=== PATIENT | male | born 1950 | race Caucasian/White ===

== ENCOUNTER 2017-02-09 16:10 | Inpatient (IN) | payer MEDICARE, OTHER, SELFPAY ==
[2017-02-09] MEDS ORDERED: methylPREDNISolone Sod Succ/PF 125 MG/2 ML VIAL ONE (16:33)
[2017-02-09 16:44] LABS: #Basophils 0.2 thou/uL (0.0-0.2); #Eosinphils 0.3 thou/uL (0.0-0.7); #Lymphocytes 1.2 thou/uL (1.20-3.40); #Monocytes 0.9 thou/uL (0.11-0.59); %Basophils 1.6 % (0.0-1.0); %Lymphocytes 11.3 % (21.0-51.0); %Monocytes 8.4 % (0.0-10.0); Hematocrit 47.1 % (42.0-52.0); Mean Platelet Volume 9.7 fL (7.4-10.4); Red Blood Cell (RBC) Count 4.85 mill/uL (4.70-6.10); White Blood Cell (WBC) Count 10.6 thou/uL (4.8-10.8)
[2017-02-09] MEDS ORDERED: Aspirin 325 MG TAB ONE (16:47)
[2017-02-09 17:12] LABS: pH (venous) 7.416 (7.35-7.45)
[2017-02-09 17:14] LABS: Blood Gas POC Comment Instrument #1
[2017-02-09 17:17] LABS: ALT (SGPT) 46 U/L (8-55); AST (SGOT) 64 U/L (5-34); Alkaline Phosphatase 307 U/L (40-150); Anion Gap 16 mmol/L (10-20); BUN (Urea Nitrogen) 9 mg/dL (8.4-25.7); Bilirubin, Total 2.9 mg/dL (0.2-1.2); Calc. Creatinine Clearance 0 mL/min (70-130); Carbon Dioxide 28 mmol/L (23-31); Chloride 97 mmol/L (98-107); Estimated GFR-MDRD Greater than 90; Globulin 3.3 g/dL (2.4-3.5); Protein, Total 6.5 g/dL (5.8-8.1); Troponin I 0.065 ng/mL (< 0.028)
[2017-02-09 17:30] LABS: Prothrombin Time 18.8 SEC (12.0-14.7)
--- NOTE | 2017-02-09 17:48 | RAD ---
AP VIEW OF THE CHEST 02/09/17 INDICATION: History of dyspnea. COMPARISON: Prior exam dated 06/10/07. FINDINGS: There is cardiomegaly with pulmonary vascular congestion and bilateral pleural effusions suspicious f or changes of decompensated CHF. There is air space opacity seen within the right mid lung and right lower lobe which may reflect edema or pneumonia. Chronic osseous changes are stable. Post CABG change s are similar. IMPRESSION: 1. Findings suspicious for decompensated CHF. 2. Air space opacity in the right mid lung and right lower lobe may reflect pneumonia or possibl e air space edema. Continued followup is recommended. POS: TAMAR
[2017-02-09] MEDS ORDERED: Furosemide 40 MG/4 ML VIAL ONE (18:18)
[2017-02-09 18:36] LABS: Bilirubin Moderate (Negative); Blood, Urine Negative (Negative); Glucose, Urine (Dipstick) 100 mg/dL (Negative); Ketone, Urine Negative (Negative); Nitrite Negative (Negative); Protein, Urine (Dipstick) Trace mg/dL (Neg-Trace); Urobilinogen > or = 8.0 mg/dL (0.2-1.0)
[2017-02-09] MEDS ORDERED: Ondansetron ODT 4 MG TAB SL PRN (21:19)
[2017-02-09] MEDS ORDERED: Ondansetron HCl/PF 4 MG/2 ML Vial IVP PRN (21:19)
[2017-02-09] MEDS ORDERED: Acetaminophen 325 MG TAB PO PRN (21:19)
[2017-02-09] MEDS ORDERED: PROVENTIL INHALER 6.7 G (200 INHALATIONS) INH PRN (23:52)
[2017-02-10 00:09] LABS: Troponin I 0.044 ng/mL (< 0.028)
[2017-02-10] MEDS ORDERED: HYDROcodone/Acetaminophen 10/325 mg Tablet PO SCH (00:30)
[2017-02-10] MEDS ORDERED: tiZANidine HCl 4 MG TAB PO SCH (00:30)
[2017-02-10] MEDS ORDERED: Zolpidem Tartrate 5 MG TAB PO SCH (00:30)
[2017-02-10] MEDS ORDERED: hydrALAZINE 10 MG TAB PO SCH (00:30)
[2017-02-10] MEDS ORDERED: PROVENTIL INHALER 6.7 G (200 INHALATIONS) INH PRN (04:48)
[2017-02-10 05:42] LABS: #Lymphocytes 0.5 thou/uL (1.20-3.40); #Monocytes 0.2 thou/uL (0.11-0.59); #Neutrophils 6.1 thou/uL (1.40-6.50); %Eosinophils 0.1 % (0.0-10.0); %Lymphocytes 7.5 % (21.0-51.0); %Monocytes 2.8 % (0.0-10.0); Hematocrit 46.7 % (42.0-52.0); Mean Platelet Volume 9.6 fL (7.4-10.4); Red Blood Cell (RBC) Count 4.62 mill/uL (4.70-6.10); White Blood Cell (WBC) Count 6.9 thou/uL (4.8-10.8)
[2017-02-10 05:49] LABS: ALT (SGPT) 40 U/L (8-55); AST (SGOT) 56 U/L (5-34); Alkaline Phosphatase 304 U/L (40-150); Anion Gap 14 mmol/L (10-20); BUN (Urea Nitrogen) 12 mg/dL (8.4-25.7); Bilirubin, Total 2.5 mg/dL (0.2-1.2); Calc. Creatinine Clearance 184 mL/min (70-130); Carbon Dioxide 28 mmol/L (23-31); Chloride 97 mmol/L (98-107); Estimated GFR-MDRD Greater than 90; Globulin 3.4 g/dL (2.4-3.5); Protein, Total 6.5 g/dL (5.8-8.1)
[2017-02-10] MEDS: Furosemide 20 MG/2 ML VIAL SLOW IVP SCH ×2 (05:55→21:58)
[2017-02-10 06:35] LABS: Magnesium 1.7 mg/dL (1.6-2.6); Phosphorus 2.7 mg/dL (2.3-4.7)
--- NOTE | 2017-02-10 08:52 | PDOC.FM ---
- Subjective Subjective: Pt reports doing well overnight. No acute events. Pt denies any SOB overnight. Denies any chest pain. Denies any other sx at this time. - Objective MAR Reviewed: Yes Vital Signs & Weight: Vital Signs (12 hours) Temp Pulse Resp BP BP BP Pulse Ox 02/10/17 07:08 97.7 F 88 16 135/78 91 L 02/10/17 04:00 97.4 F L 68 20 126/66 94 L 02/10/17 00:37 80 151/82 H 02/10/17 00:30 97.7 F 83 20 158/84 H 99 02/09/17 21:30 97.8 F 80 20 100 02/09/17 21:19 97.8 F 80 20 151/82 H 100 02/09/17 21:15 97.8 F 80 20 151/82 H 100 Weight Weight 120.429 kg I&O: 02/09/17 02/10/17 02/11/17 06:59 06:59 06:59 Intake Total 612 Output Total 750 Balance -138 Result Diagrams: 02/10/17 04:22 02/10/17 04:22 Radiology Reviewed by me: Yes (CXR: Decompensated CHF. Opacity in R. mid lung on RLL may reflect pneumonia) <Ray aCbrera - Last Filed: 02/10/17 08:50> - Objective Vital Signs & Weight: Vital Signs (12 hours) Temp Pulse Pulse Pulse Resp BP BP 02/10/17 11:35 97.4 F L 89 18 02/10/17 09:51 88 02/10/17 09:50 99 146/93 H 02/10/17 09:32 71 99 125/79 02/10/17 07:08 97.7 F 88 16 02/10/17 04:00 97.4 F L 68 20 BP BP Pulse Ox Pulse Ox Pulse Ox 02/10/17 11:35 136/81 92 L 02/10/17 09:51 02/10/17 09:50 02/10/17 09:32 146/93 H 90 L 87 L 02/10/17 07:08 135/78 91 L 02/10/17 04:00 126/66 94 L Weight Admit Weight 265 lb 4.8 oz Weight 265 lb 4.8 oz I&O: 11/10/1902/10/17 02/11/17 06:59 06:59 06:59 Intake Total 612 Output Total 750 Balance -138 Result Diagrams: 02/10/17 04:22 02/10/17 04:22 <Bakari Murillo - Last Filed: 02/10/17 12:56> Phys Exam - Physical Examination HEENT: PERRLA, moist MMs Neck: no nodes, no JVD, supple, full ROM Rales on ausculation. Decreased breath sounds at the bases Cardiovascular: RRR, no significant murmur, no rub Gastrointestinal: soft, non-tender, positive bowel sounds Mildly distended Musculoskeletal: pulses present +2 pitting edmea in lower extremeties bilaterally Neurological: non-focal, moves all 4 limbs Lymphatic: no nodes Psychiatric: normal affect, A&O x 3 Skin: no rash <Ray Cabrera - Last Filed: 02/10/17 08:50> Dx/Plan (1) Heart failure Code(s): I50.9 - HEART FAILURE, UNSPECIFIED Status: Acute Qualifiers: Heart failure type: unspecified heart failure type Heart failure chronicity : acute Qualified Code(s): I50.9 - Heart failure, unspecified Plan: -pt states he had an Echo 3 months ago at outside facility. States everything was normal. Requested records from [facility] -Will get TTE today to assess -On IV lasix -Cardiology consulted-Dr. Crain, will await recommendations -Pt NPO at this time just in case any further testing will be needed, hx of 2 CABGs. -Strict I/Os and daily weights for monitoring -Dietary and Heart Failure team consulted for counseling on disease management (2) Paroxysmal atrial fibrillation Code(s): I48.0 - PAROXYSMAL ATRIAL FIBRILLATION Status: Acute Plan: -hx of a.fib -continue home meds -On tele monitor (3) History of coronary artery bypass surgery Status: Acute Plan: -history of 2 CABGs in the past -Continue home meds -Troponins in indeterminate range, trended down. (4) HTN (hypertension) Code(s): I10 - ESSENTIAL (PRIMARY) HYPERTENSION Status: Acute Plan: -continue home meds -BP stable (5) Non-alcoholic fatty liver disease Status: Chronic Plan: -Goes to the [facility]. Has been worked up in the past -Will await records. Possibly consider RUQ u/s (6) Transaminitis Code(s): R74.0 - NONSPEC ELEV OF LEVELS OF TRANSAMNS & LACTIC ACID DEHYDRGNSE Status: Acute Plan: -Hepatitis panel negative -Could be due to NAFLD -[facility] as patient states has recently been worked up a few months ago (7) HLD (hyperlipidemia) Code(s): E78.5 - HYPERLIPIDEMIA, UNSPECIFIED Status: Acute Plan: -continue home meds (8) Hyperbilirubinemia Code(s): E80.6 - OTHER DISORDERS OF BILIRUBIN METABOLISM Status: Acute Plan: -Bili 2.5 -Likely due to NAFLD -No abdominal pain -Getting outside records <Ray Cabrera - Last Filed: 02/10/17 08:50> Attending Addendum - Attending Addendum I personally evaluated the patient and discussed the management with Dr. Cabrera I agree with the History, Examination, Assessment and Plan documented above with any addition or exceptions noted below. 67 year old with progressive SOB over the last month. He presents with CHF. He has known CAD but no recent [place]. We have asked Cardiology to see. He has an echo pending, but may also need a cath. <Bakari Murillo - Last Filed: 02/10/17 12:56>
[2017-02-10] MEDS ORDERED: Metoprolol Tartrate 100 MG TAB PO SCH (09:00)
[2017-02-10] MEDS: Lisinopril 2.5 MG TAB PO SCH (09:50)
[2017-02-10] MEDS: hydrALAZINE 10 MG TAB PO SCH ×3 (09:51→21:55)
[2017-02-10] MEDS: Enoxaparin Sodium 40 MG/0.4 ML SYRINGE SC SCH (09:51)
--- NOTE | 2017-02-10 10:09 | HP-2 ---
DATE OF ADMISSION: 02/09/2017 CODE STATUS: FULL. PRIMARY CARE PHYSICIAN: NEYMAR. ATTENDING: Olman Henderson MD RESIDENT: Cary Valladares MD HISTORIAN: Self. CHIEF COMPLAINT: Shortness of breath. HISTORY OF PRESENT ILLNESS: This is a 67-year-old male with past medical history of coronary artery disease, atrial fibrillation, COPD, hypertension, hyperlipidemia, nonalcoholic fatty liver disease who presented with shortness of breath. Patient reports that 4 weeks ago, he had upper respiratory infection which the ID got azithromycin, did not work, so he went back and got put him on Levaquin t his last Wednesday. The last week, he started having shortness of breath if he walks more than 50 feet . He went to his physical therapist today and his oxygen saturation was 83% to 84%, so they told hi m to come to the ED. He reports that he has had a nonproductive cough, low grade fever at night to 100.4, as well as chills. He has had worsened swelling in his legs. He has had no paroxysmal noctu rnal dyspnea, but reports some orthopnea and sleeps on 2 pillows at night. He has had some rhinorrh ea and nasal congestion that has led to some vomiting. Denies any chest pain or wheezing. He is no t on oxygen at home. PAST MEDICAL HISTORY: 1. Coronary artery disease. 2. Paroxysmal atrial fibrillation, diagnosed 2-3 months ago. 3. Hyperlipidemia. 4. Hypertension. 5. Chronic obstructive pulmonary disease. 6. Post-traumatic stress disorder. 7. Anxiety. 8. Nonalcoholic fatty liver disease. PAST SURGICAL HISTORY: Appendectomy; CABG x2; hands, shoulders, spinal surgery; tonsillectomy. ALLERGIES: CEPHALOSPORINS. MEDICATIONS: 1. Albuterol 2 puffs b.i.d. 2. Aspirin 81 mg daily. 3. Lasix 40 mg q.a.m. p.r.n. 4. [place] 10/325 mg 2 tabs p.o. at bedtime. 5. Ipratropium bromide 2 sprays in each naris. 6. Metoprolol tartrate 100 mg b.i.d. 7. Omeprazole 20 mg at bedtime. 8. Potassium chloride 20 mg p.r.n. with Lasix. 9. Zoloft 100 mg daily. 10. Simvastatin 80 mg 0.5 tabs p.o. at bedtime. 11. Ambien 10 mg at bedtime. 12. Hydralazine 10 mg t.i.d. 13. Hydroxyzine 10 mg at bedtime. 14. Tizanidine 4 mg at bedtime. FAMILY HISTORY: Dad had coronary artery disease. SOCIAL HISTORY: Past history of tobacco use, a 21-yxfz-wlng history, quit in 1990. Alcohol use occ asionally. Denies drug use. REVIEW OF SYSTEMS: Twelve point review of systems was conducted and was negative except what was me ntioned in the HPI. PHYSICAL EXAMINATION: VITAL SIGNS: Blood pressure 139/71, pulse 88, respiratory rate 23, temperature 97.9, pulse ox 84% o n room air. GENERAL: Alert and oriented x3, in no acute distress, obese, appropriately interactive. EYES: Pupils equal, round, reactive to light. Extraocular muscles are intact. Mild scleral icteru s. ENT: Nasal mucosa and oropharynx within normal limits. NECK: Supple, no lymphadenopathy. CARDIOVASCULAR: Regular rate, irregular rhythm, 3/6 systolic murmur. No gallops. 2+ radial and pe keren pulses. RESPIRATORY: Normal effort. No retractions. Rales and decreased breath sounds at the bases. SKIN: Warm, dry. No cyanosis. Stasis dermatitis on bilateral legs. ABDOMEN: Soft, nontender to palpation. Normoactive bowel sounds. No mass or distention. EXTREMITIES: 2+ pitting edema to the knees. MUSCULOSKELETAL: Structure and tone within normal limits. Full range of motion. NEUROLOGIC: No focal deficits. Sensation within normal limits. PSYCHIATRIC: Appropriate. LABORATORY AND IMAGING DATA: WBC 10.6, hemoglobin 15.2, hematocrit 47.1, platelets 211. Sodium 137 , potassium 3.8, chloride 97, CO2 of 28, BUN 9, creatinine 0.69, GFR greater than 90, glucose 97, ca lcium 9.0, total protein 6.5, albumin 3.2, total bilirubin 2.9, alkaline phosphatase 307, AST 64, AL T 47. PT 18.8, INR 1.5. BNP 388.4, troponin 0.065 and 0.060. Urinalysis had moderate bilirubin, g reater than 8 urobilinogen and 100 glucose. VBG, pH of 7.4, pCO2 of 49.3, HCO3 of 32. Chest x-ray showed cardiomegaly with pulmonary vascular congestion, bilateral pleural effusions, airspace opacit y in right middle lobe and right lower lobe. ASSESSMENT AND PLAN: A 67-year-old male who presents with: 1. Congestive heart failure exacerbation. We will request records from [facility]. We will give Lasix 20 mg IV b.i.d., daily weights, strict I's and O's, fluid restrict, echo in the a.m, we will give oxyge n as needed. 2. Indeterminate troponins. We will trend troponins, monitor on tele. We will give aspirin daily. 3. Transaminitis. Patient has a recent diagnosis of nonalcoholic fatty liver disease with recent a bdominal ultrasound. We will request records from the [facility]. We will check a hepatitis panel. He has no current abdominal pain. We will check a direct bilirubin. 4. Hyperbilirubinemia. We will check a direct bilirubin. Patient has mild scleral icterus. Consi tyler repeat ultrasound. 5. Coronary artery disease. Continue home medications. Monitor on tele. 6. Paroxysmal atrial fibrillation as a recent diagnosis. We will continue home medications. Monit or on tele. 7. Hypertension. Continue home medications. 8. Hyperlipidemia. Continue home medications. 9. Nonalcoholic fatty liver disease, likely cause of transaminitis. We will monitor LFTs in the a. m. 10. Anxiety. Continue home medications. 11. Deep venous thrombosis prophylaxis. Lovenox. DISPOSITION: Admit to tele. Symptomatic medication will be provided. History and physical exam as well as management discussed with Dr. Henderson.
--- NOTE | 2017-02-10 15:35 | CON ---
DATE OF CONSULTATION: 02/10/2017 REASON FOR CONSULTATION: Congestive heart failure, coronary artery disease, bypass surgery on 2 dif ferent occasions. HISTORY: Mr. Mullins is a 67-year-old gentleman who has been having progressive lower extremity swel ling and difficulty breathing over the last several months and finally the difficulty breathing wors ened to the point he had to go to the emergency room. He was found to be in congestive heart failur e. He has received diuretics. He is beginning to feel better. He is not having chest pain or pres sure. The lower extremity edema has been present for at least months, but I suspect it is longer. The patient has a history of bypass surgery in 1990 and then again in in 2002. In 2002 with a repea t surgical therapy. The family recalls at that time being told that he is not a candidate for any f urther operations in terms of his coronary status. The patient had chest pain prior to the bypass surgeries. He also had stenting done in the past, bu t that was done prior to the bypass. The patient otherwise has been as mentioned progressively more short of breath and was told that he had worsening of his COPD and progressive lower extremity edema. As mentioned, he feels somewhat better after the diuretic therapy. MEDICATIONS: 1. At home, he was taking metoprolol 100 mg twice daily. 2. Albuterol. 3. Furosemide 40 mg a day if needed. 4. Simvastatin 40 mg daily. 5. Aspirin. 6. Hydralazine. 7. Potassium if needed. SOCIAL HISTORY: No alcohol or tobacco. The patient did smoke, but quit smoking in the early . ALLERGIES: CEPHALOSPORINS. REVIEW OF SYSTEMS: CONSTITUTIONAL: Positive for weakness, fatigue, and lack of energy and swelling. VISION: No changes. HEARING: No changes. PULMONARY: Positive for shortness of breath and cough. CARDIAC: No chest pain, but positive for shortness of breath and swelling. GASTROINTESTINAL: No nausea, vomiting, diarrhea. SKIN: No rashes. NEUROLOGIC: No unilateral weakness or numbness. PSYCHIATRIC: No unusual depression or anxiety. HEMATOLOGIC: No unusual bruising. GENITOURINARY: No burning with urination. MUSCULOSKELETAL: No unusual joint pains. EXTREMITIES: Positive for edema. He also gets exertional leg pain. PHYSICAL EXAMINATION: GENERAL: It is a 67-year-old gentleman. VITAL SIGNS: Height 5 foot 10 inches tall, 265 pounds, BMI 38. EYES: Sclerae nonicteric. MOUTH: Mucous membranes moist. NECK: Supple, no lymphadenopathy. LUNGS: Clear, no wheezing, rales or rhonchi. CARDIOVASCULAR: Normal S1, normal S2. There is no murmur, rub or gallop. ABDOMEN: Obese, nontender, no hepatosplenomegaly. EXTREMITIES: There is severe edema bilaterally with brownish discoloration of both lower extremitie s from the mid calf down indicating chronic venous insufficiency and venous stasis. PULSES: I do not feel pedal pulses on either side, his feet are cold, his hands are cold. I do fee l popliteal pulses on either side. I do not feel a femoral pulse on the left, I feel like there may be a trace femoral pulse on the right. PERTINENT LABORATORY: His potassium is 3.9, creatinine 0.68, BNP 388, AST 56, ALT 40. He was told that he had fatty liver, glucose 163. Hemoglobin 15. He had a venous blood gas done, pO2 is 22. The echocardiogram reveals ejection fraction 25-30%. The inferior wall is akinetic, moderately larg e right ventricle, left atrium severe dilatation, moderately large left ventricle, calcified aortic valve with no stenosis, moderate to severe tricuspid insufficiency and moderately elevated pulmonary artery pressure. EKG; difficult to tell, the rhythm may be junctional, I do not see P waves. There are frequent PVCs . Another EKG looks like maybe a junctional rhythm as well. Some of the EKGs looked suspicious fo r atrial fibrillation. ASSESSMENT: 1. Congestive heart failure, systolic, acute on chronic. 2. Coronary disease with bypass surgery on 2 different occasions. 3. Obesity, BMI is 38. 4. Appears to have diabetes. 5. Peripheral vascular disease, likely severe. 6. Increased liver function test. 7. Hypercholesterolemia. 8. Volume overloaded. PLAN: 1. Change from metoprolol to carvedilol. 2. I agree with RAYMOND inhibitors. 3. Increase diuretic therapy. 4. Continue to monitor heart rhythm. 5. Tentatively plan for cardiac catheterization once the congestive heart failure is improved, poss ibly Wednesday. I discussed the risks of stroke, heart attack, iodine allergy, loss of blood supply to the leg or kidney, stent thrombosis to the leg or kidney, stent thrombosis, stent restenosis. He u nderstands and wishes to proceed. Prognosis is guarded in this gentleman with multiple medical problems with bypass on 2 occasions wit h congestive heart failure.
[2017-02-10] MEDS: Carvedilol 6.25 MG TAB PO SCH (16:26)
[2017-02-10] MEDS ORDERED: Potassium Chloride 20 MEQ TAB PO SCH ×2 (17:00→18:00)
[2017-02-10] MEDS ORDERED: Furosemide 40 MG/4 ML VIAL SLOW IVP SCH (18:00)
[2017-02-10] MEDS: tiZANidine HCl 4 MG TAB PO SCH (21:52)
[2017-02-10] MEDS: hydrOXYzine 10 MG TAB PO SCH (21:52)
[2017-02-10] MEDS: Aspirin 81 mg Enteric Coated Tablet PO SCH (21:52)
[2017-02-10] MEDS: HYDROcodone/Acetaminophen 10/325 mg Tablet PO SCH (21:53)
[2017-02-10] MEDS: Zolpidem Tartrate 5 MG TAB PO SCH (21:54)
[2017-02-10] MEDS: Simvastatin 40 MG TAB PO SCH (21:55)
[2017-02-10] MEDS: Ipratropium Bromide 0.06% Nasal Inhaler 15ml EA NARE SCH (21:58)
[2017-02-11 05:24] LABS: #Lymphocytes 1.2 thou/uL (1.20-3.40); #Monocytes 0.8 thou/uL (0.11-0.59); #Neutrophils 12.1 thou/uL (1.40-6.50); %Eosinophils 0.1 % (0.0-10.0); %Lymphocytes 8.7 % (21.0-51.0); %Monocytes 5.7 % (0.0-10.0); Hematocrit 45.3 % (42.0-52.0); Mean Platelet Volume 8.8 fL (7.4-10.4); Red Blood Cell (RBC) Count 4.44 mill/uL (4.70-6.10); White Blood Cell (WBC) Count 14.2 thou/uL (4.8-10.8)
[2017-02-11 05:44] LABS: ALT (SGPT) 53 U/L (8-55); AST (SGOT) 99 U/L (5-34); Alkaline Phosphatase 273 U/L (40-150); Anion Gap 11 mmol/L (10-20); BUN (Urea Nitrogen) 18 mg/dL (8.4-25.7); Bilirubin, Total 1.9 mg/dL (0.2-1.2); Calc. Creatinine Clearance 196 mL/min (70-130); Calcium 8.8 mg/dL (7.8-10.44); Carbon Dioxide 31 mmol/L (23-31); Chloride 98 mmol/L (98-107); Cholesterol 89 mg/dl (< 200 Desired); Estimated GFR-MDRD Greater than 90; LDL Cholesterol, Calculated 63 mg/dL; Protein, Total 5.8 g/dL (5.8-8.1)
--- NOTE | 2017-02-11 08:33 | PDOC.FM ---
- Subjective Subjective: Pt doing well this morning. Denies SOB. Denies any chest pain. Denies any acute problems overnight - Objective MAR Reviewed: Yes Vital Signs & Weight: Vital Signs (12 hours) Temp Pulse Resp BP BP Pulse Ox 02/11/17 04:00 97.5 F L 72 20 101/59 L 97 02/10/17 21:55 107 H 112/55 L Weight Admit Weight 120.338 kg Weight 117.934 kg I&O: 02/10/17 02/11/17 02/12/17 06:59 06:59 06:59 Intake Total 612 510 Output Total 750 3225 Balance -138 -2687 Result Diagrams: 02/11/17 04:19 02/11/17 04:19 Radiology Reviewed by me: Yes Radiology: ECHO: EF 25-30%. LV size moderately increased. Inferior wall akinetic. Moderately enlarged R. ventricle. Left atrium severely dilated. Moderate mitral regurgitation. Moderate-severe tricuspid regurgitation. Moderately elevated pulm pressure <Ray Cabrera - Last Filed: 02/11/17 08:34> - Objective Vital Signs & Weight: Vital Signs (12 hours) Temp Pulse Resp BP BP Pulse Ox 02/11/17 10:15 109 H 106/58 L 02/11/17 10:13 106/58 L 02/11/17 10:07 97.8 F 109 H 24 H 106/58 L 93 L 02/11/17 04:00 97.5 F L 72 20 101/59 L 97 Weight Admit Weight 265 lb 4.8 oz Weight 260 lb I&O: 02/10/17 02/11/17 02/12/17 06:59 06:59 06:59 Intake Total 612 510 Output Total 750 3225 Balance -138 -0852 Result Diagrams: 02/11/17 04:19 02/11/17 04:19 <Bakari Murillo - Last Filed: 02/11/17 10:52> Phys Exam - Physical Examination Neck: no nodes, supple JVD up to ear noted rales noted in bases of lungs Cardiovascular: RRR, no significant murmur, no rub Gastrointestinal: soft, non-tender, positive bowel sounds mildly distended +2 pitting edema in LE bilaterally Neurological: non-focal, normal sensation Psychiatric: normal affect, A&O x 3 Skin: no rash <Ray Cabrera - Last Filed: 02/11/17 08:34> Dx/Plan (1) Heart failure Code(s): I50.9 - HEART FAILURE, UNSPECIFIED Status: Acute Qualifiers: Heart failure type: unspecified heart failure type Heart failure chronicity : acute Qualified Code(s): I50.9 - Heart failure, unspecified Plan: -pt states he had an Echo 3 months ago at outside facility. States everything was normal. Requested records from [place] -ECHO: EF 25-30%. Inferior wall akinetic. R and L ventricles dilated -On IV lasix BID -Started on Lisinopril -Cardiology consulted-Dr. Crain, will await recommendations -Plan for cath on Wednesday. Diuresing more to make more stable for cath -Switched metoprolol to carvedilol -Strict I/Os and daily weights for monitoring. Heart Healthy diet -Dietary and Heart Failure team consulted for counseling on disease management (2) Paroxysmal atrial fibrillation Code(s): I48.0 - PAROXYSMAL ATRIAL FIBRILLATION Status: Acute Plan: -hx of a.fib -Went into A. fib yesterday. Rate controlled at this time -continue home meds -On tele monitor (3) History of coronary artery bypass surgery Status: Acute Plan: -history of 2 CABGs in the past -Continue home meds -Troponins in indeterminate range, trended down. (4) HTN (hypertension) Code(s): I10 - ESSENTIAL (PRIMARY) HYPERTENSION Status: Acute Plan: -Started on lisinopril. Metoprolol switched to Carvedilol -BP a little low may consider stopping hydralazine at this time -BP stable (5) Non-alcoholic fatty liver disease Status: Chronic Plan: [facility] -Will await records. -Bili trending down. L (6) Transaminitis Code(s): R74.0 - NONSPEC ELEV OF LEVELS OF TRANSAMNS & LACTIC ACID DEHYDRGNSE Status: Acute Plan: -Hepatitis panel negative -Could be due to NAFLD and congestion from heart failure -Will continue to follow with CMPs at this time -[facility] as patient states has recently been worked up a few months ago (7) HLD (hyperlipidemia) Code(s): E78.5 - HYPERLIPIDEMIA, UNSPECIFIED Status: Acute Plan: -continue home meds (8) Hyperbilirubinemia Code(s): E80.6 - OTHER DISORDERS OF BILIRUBIN METABOLISM Status: Acute Plan: -Bili trending down. -Likely due to NAFLD and congestion from heart failure -No abdominal pain -Getting outside records (9) Leukocytosis Code(s): D72.829 - ELEVATED WHITE BLOOD CELL COUNT, UNSPECIFIED Status: Acute Plan: -Possible Pneumonia noted on CXR. -Pt is nonfebrile at this time -Took two rounds of abx the week prior. -Will continue to follow with CBC and follow for signs of infection <Ray Cabrera - Last Filed: 02/11/17 08:34> Attending Addendum - Attending Addendum I personally evaluated the patient and discussed the management with Dr. Cabrera I agree with the History, Examination, Assessment and Plan documented above with any addition or exceptions noted below. We have added lisinopril and are continuing IV lasix to improve his CHF. He is comfortable at present. He is scheduled for a cath tomorrow. <Bakari Murillo - Last Filed: 02/11/17 10:52>
[2017-02-11] MEDS: Furosemide 40 MG/4 ML VIAL SLOW IVP SCH ×2 (08:35→15:07)
[2017-02-11] MEDS ORDERED: FLU VACC TS2017-18 (>65YR) 0.5 ML SYRINGE IM ONE (09:00)
--- NOTE | 2017-02-11 09:40 | PRG ---
DATE OF SERVICE: 02/11/2017 SUBJECTIVE: Mr. Mullins is sitting up on the side of the bed. He is not having chest pain, but he i s sitting straight up. PHYSICAL EXAMINATION: VITAL SIGNS: Blood pressure is 101/59, pulse 72, regular. LUNGS: Clear. CARDIAC: Normal S1, S2. ABDOMEN: Soft, nontender. EXTREMITIES: There is still significant edema, severe. Pedal pulses, I do not feel femoral pulse on the right or left, I do not feel popliteal or any pulses below. The patient coughs when he lays down. His oxygen saturations are in the 80s on oxygen. ASSESSMENT: 1. Congestive heart failure, systolic, still decompensated. 2. Severe peripheral vascular disease. 3. Bypass x2. 4. Coronary artery disease. 5. Ventricular tachycardia. PLAN: 1. He is on low dose beta-jennifer. 2. Continue diuretic therapy. 3. Will check later, may need to hold off on the cardiac catheterization. Prognosis is guarded.
[2017-02-11] MEDS: Carvedilol 6.25 MG TAB PO SCH ×3 (10:13→20:22)
[2017-02-11] MEDS: Potassium Chloride 20 MEQ TAB PO SCH ×2 (10:14→16:26)
[2017-02-11] MEDS: Enoxaparin Sodium 40 MG/0.4 ML SYRINGE SC SCH (10:14)
[2017-02-11] MEDS: Lisinopril 2.5 MG TAB PO SCH (10:15)
[2017-02-11] MEDS: hydrALAZINE 10 MG TAB PO SCH ×2 (10:15→15:04)
[2017-02-11] MEDS: Ipratropium Bromide 0.06% Nasal Inhaler 15ml EA NARE SCH (10:16)
[2017-02-11] MEDS ORDERED: Digoxin 0.5 MG/2 ML AMP SLOW IVP SCH ×2 (17:00→18:45)
[2017-02-11] MEDS ORDERED: Carvedilol 6.25 MG TAB PO SCH (18:45)
[2017-02-11] MEDS ORDERED: Enoxaparin Sodium 100 MG/ML SYRINGE SC SCH (19:00)
[2017-02-11] MEDS: Zolpidem Tartrate 5 MG TAB PO SCH (20:15)
[2017-02-11] MEDS: HYDROcodone/Acetaminophen 10/325 mg Tablet PO SCH (20:19)
[2017-02-11] MEDS: hydrOXYzine 10 MG TAB PO SCH (20:19)
[2017-02-11] MEDS: Aspirin 81 mg Enteric Coated Tablet PO SCH (20:19)
[2017-02-11] MEDS: Simvastatin 40 MG TAB PO SCH (20:20)
[2017-02-11] MEDS: tiZANidine HCl 4 MG TAB PO SCH (20:20)
[2017-02-12 05:08] LABS: #Eosinphils 0.1 thou/uL (0.0-0.7); #Lymphocytes 1.9 thou/uL (1.20-3.40); #Monocytes 0.8 thou/uL (0.11-0.59); #Neutrophils 6.2 thou/uL (1.40-6.50); %Basophils 0.2 % (0.0-1.0); %Eosinophils 1.3 % (0.0-10.0); %Lymphocytes 21.1 % (21.0-51.0); Hematocrit 47.8 % (42.0-52.0); Mean Platelet Volume 8.8 fL (7.4-10.4); Red Blood Cell (RBC) Count 4.67 mill/uL (4.70-6.10); White Blood Cell (WBC) Count 9.1 thou/uL (4.8-10.8)
[2017-02-12 05:42] LABS: ALT (SGPT) 55 U/L (8-55); AST (SGOT) 84 U/L (5-34); Alkaline Phosphatase 271 U/L (40-150); Anion Gap 14 mmol/L (10-20); BUN (Urea Nitrogen) 17 mg/dL (8.4-25.7); Bilirubin, Total 1.9 mg/dL (0.2-1.2); Calc. Creatinine Clearance 175 mL/min (70-130); Calcium 8.5 mg/dL (7.8-10.44); Carbon Dioxide 30 mmol/L (23-31); Chloride 97 mmol/L (98-107); Estimated GFR-MDRD Greater than 90; Globulin 3.3 g/dL (2.4-3.5); Protein, Total 6.1 g/dL (5.8-8.1)
[2017-02-12] MEDS: Furosemide 40 MG/4 ML VIAL SLOW IVP SCH ×2 (05:43→14:16)
[2017-02-12] MEDS ORDERED: Carvedilol 6.25 MG TAB PO SCH (08:00)
[2017-02-12] MEDS ORDERED: Digoxin 0.5 MG/2 ML AMP SLOW IVP SCH (08:15)
[2017-02-12] MEDS: Lisinopril 2.5 MG TAB PO SCH (08:43)
[2017-02-12] MEDS: Potassium Chloride 20 MEQ TAB PO SCH ×2 (08:43→16:15)
[2017-02-12] MEDS: Enoxaparin Sodium 100 MG/ML SYRINGE SC SCH ×2 (08:44→20:36)
--- NOTE | 2017-02-12 09:05 | PDOC.FM ---
- Subjective Subjective: Pt doing well this morning. Denies any SOB or chest pain. Denies any acute events overnight. Did report having some headaches yesterday. Pt has been peeing a lot and tolerating new medications. No other concerns or complaints at this time - Objective MAR Reviewed: Yes Vital Signs & Weight: Vital Signs (12 hours) Pulse Resp BP BP 02/12/17 08:43 90 160/76 H 02/12/17 08:41 107 H 02/12/17 03:53 90 16 104/58 L Weight Admit Weight 120.338 kg Weight 70.307 kg I&O: 02/11/17 02/12/17 02/13/17 06:59 06:59 06:59 Intake Total 510 720 Output Total 1753 0810 Balance -3154 -6925 Result Diagrams: 02/12/17 04:10 02/12/17 04:10 Radiology Reviewed by me: Yes (No new images to be reviewed) <Ray Cabrera - Last Filed: 02/12/17 09:03> - Objective Vital Signs & Weight: Vital Signs (12 hours) Temp Pulse Resp BP BP BP Pulse Ox 02/12/17 09:55 120 H 02/12/17 08:45 97.8 F 120 H 18 160/76 H 92 L 02/12/17 08:43 90 160/76 H 02/12/17 08:41 107 H 02/12/17 03:53 90 16 104/58 L Weight Admit Weight 265 lb 4.8 oz Weight 250 lb 5 oz I&O: 02/11/17 02/12/17 02/13/17 06:59 06:59 06:59 Intake Total 510 720 Output Total 2033 9150 Balance -7106 -3650 Result Diagrams: 02/12/17 04:10 02/12/17 04:10 <Bakari Murillo - Last Filed: 02/12/17 11:14> Phys Exam - Physical Examination HEENT: PERRLA, moist MMs Neck: no nodes, supple JVD to chin line noted Respiratory: no wheezing, no rales, clear to auscultation bilateral Cardiovascular: RRR, no significant murmur, no rub Gastrointestinal: soft, non-tender, positive bowel sounds Mild distention +1 pitting edema. Swelling improved from yesterday in LE Neurological: non-focal, normal sensation Psychiatric: normal affect, A&O x 3 Deviation from normal: Chronic venostasis noted in bilateral LE <Ray Cabrera - Last Filed: 02/12/17 09:03> Dx/Plan (1) Heart failure Code(s): I50.9 - HEART FAILURE, UNSPECIFIED Status: Acute Qualifiers: Heart failure type: unspecified heart failure type Heart failure chronicity : acute Qualified Code(s): I50.9 - Heart failure, unspecified Plan: -pt states he had an Echo 3 months ago at outside facility. States everything was normal. Requested records from [place] -ECHO: EF 25-30%. Inferior wall akinetic. R and L ventricles dilated -On IV lasix BID -Started on Lisinopril. -Cardiology consulted-Dr. Crain, will continue to follow recommendations -Will await decision for cath. Diuresing more to make more stable for cath -Switched metoprolol to carvedilol -Strict I/Os and daily weights for monitoring. Heart Healthy diet -Dietary and Heart Failure team consulted for counseling on disease management (2) Paroxysmal atrial fibrillation Code(s): I48.0 - PAROXYSMAL ATRIAL FIBRILLATION Status: Acute Plan: -hx of a.fib -continue home meds -Will continue to monitor HR. -On tele monitor -Cardiology consulted- Dr. Crain (3) History of coronary artery bypass surgery Status: Acute Plan: -history of 2 CABGs in the past -Continue home meds -Troponins in indeterminate range, trended down. (4) HTN (hypertension) Code(s): I10 - ESSENTIAL (PRIMARY) HYPERTENSION Status: Acute Plan: -Started on lisinopril. Metoprolol switched to Carvedilol -BP elevated this morning and pt reporting headaches. Hydralazine held yesterday. May restart today or increase other BP medications -BP stable (5) Non-alcoholic fatty liver disease Status: Chronic Plan: [facility] [place] -Will await records. -Bili stable (6) Transaminitis Code(s): R74.0 - NONSPEC ELEV OF LEVELS OF TRANSAMNS & LACTIC ACID DEHYDRGNSE Status: Acute Plan: -Hepatitis panel negative -Could be due to NAFLD and congestion from heart failure -Will continue to follow with CMPs at this time -Will get records from [place] and primary care as patient states has recently been worked up a few months ago (7) HLD (hyperlipidemia) Code(s): E78.5 - HYPERLIPIDEMIA, UNSPECIFIED Status: Acute Plan: -continue home meds (8) Hyperbilirubinemia Code(s): E80.6 - OTHER DISORDERS OF BILIRUBIN METABOLISM Status: Acute Plan: -Bili stable -Likely due to NAFLD and congestion from heart failure -No abdominal pain -Awaiting outside records (9) Leukocytosis Code(s): D72.829 - ELEVATED WHITE BLOOD CELL COUNT, UNSPECIFIED Status: Acute Plan: -WBC trended down today. -Possible Pneumonia noted on CXR. -Pt is nonfebrile at this time -Took two rounds of abx the week prior. -Will continue to follow with CBC and follow for signs of infection <Ray Cabrera - Last Filed: 02/12/17 09:03> Attending Addendum - Attending Addendum I personally evaluated the patient and discussed the management with Dr. Cabrera I agree with the History, Examination, Assessment and Plan documented above with any addition or exceptions noted below. He is complaining of FORD this morning. This may be secondary to starting cardedilol and stopping metoprolol. He was on 200 mg daily of metoprolol, so we can increase the dose. His rate is 110-120. We have added lisinopril as well. Dr. Crain is following with us and is planning a cath on Wednesday. He does need more diuresis for CHF, and we will continue with IV Lasix. <Bakari Murillo - Last Filed: 02/12/17 11:14>
[2017-02-12] MEDS ORDERED: Acetaminophen 325 MG TAB PO SCH (09:15)
[2017-02-12] MEDS ORDERED: Lisinopril 2.5 MG TAB PO SCH (09:15)
[2017-02-12] MEDS ORDERED: Ondansetron HCl/PF 4 MG/2 ML Vial IVP PRN (10:03)
--- NOTE | 2017-02-12 10:21 | PRG ---
DATE OF SERVICE: 02/12/2017 SUBJECTIVE: Mr. Mullins is doing somewhat better today. He has no chest pain, says he is not short of breath. He is on 2 liters a minute with oxygen satura tions only 88%. OBJECTIVE: VITAL SIGNS: Blood pressure 104/58, pulse recorded is 90, but it is actually 110, atrial fibrillati on. LUNGS: Clear. CARDIAC: Irregular, irregular. ABDOMEN: Soft, nontender. EXTREMITIES: There is still moderate edema. The oxygen saturation is still low as mentioned. Creatinine is 0.7. Liver function tests are elevated, AST is 84. The patient does have a palpable left femoral pulse today. His blood pressure is a little higher. Therefore, it is probably we can feel that still has likely iliac disease. ASSESSMENT: 1. Congestive heart failure, systolic, still in heart failure. 2. Peripheral vascular disease. 3. Nonsustained ventricular tachycardia. 4. Chronic atrial fibrillation. 5. Heart failure has been refractory. 6. Peripheral vascular disease as mentioned. PLAN: 1. Additional digoxin, heart rate is still too fast. 2. Headache probably muscle tension, this is different from his migraines. 3. Continue intravenous diuretics. 4. May do cardiac catheterization on Wednesday if he is stable. The patient is still hypoxemic.
[2017-02-12] MEDS: Ipratropium Bromide 0.06% Nasal Inhaler 15ml EA NARE SCH (10:32)
[2017-02-12] MEDS: HYDROcodone/Acetaminophen 5/325 mg Tablet PO PRN ×2 (11:01→14:15)
[2017-02-12] MEDS: Carvedilol 25 MG TAB PO SCH (16:15)
[2017-02-12] MEDS: HYDROcodone/Acetaminophen 10/325 mg Tablet PO SCH (20:33)
[2017-02-12] MEDS: Zolpidem Tartrate 5 MG TAB PO SCH (20:35)
[2017-02-12] MEDS: Aspirin 81 mg Enteric Coated Tablet PO SCH (20:35)
[2017-02-12] MEDS: tiZANidine HCl 4 MG TAB PO SCH (20:36)
[2017-02-12] MEDS: hydrOXYzine 10 MG TAB PO SCH (20:36)
[2017-02-12] MEDS: Simvastatin 40 MG TAB PO SCH (20:36)
[2017-02-13 05:39] LABS: #Basophils 0.1 thou/uL (0.0-0.2); #Eosinphils 0.3 thou/uL (0.0-0.7); #Monocytes 0.7 thou/uL (0.11-0.59); #Neutrophils 4.7 thou/uL (1.40-6.50); %Basophils 0.8 % (0.0-1.0); %Lymphocytes 25.4 % (21.0-51.0); %Monocytes 9.2 % (0.0-10.0); Hematocrit 50.7 % (42.0-52.0); Mean Platelet Volume 9.6 fL (7.4-10.4); Red Blood Cell (RBC) Count 4.94 mill/uL (4.70-6.10); White Blood Cell (WBC) Count 7.7 thou/uL (4.8-10.8)
[2017-02-13 06:02] LABS: ALT (SGPT) 48 U/L (8-55); AST (SGOT) 53 U/L (5-34); Alkaline Phosphatase 275 U/L (40-150); Anion Gap 11 mmol/L (10-20); BUN (Urea Nitrogen) 15 mg/dL (8.4-25.7); Bilirubin, Total 2.1 mg/dL (0.2-1.2); Calc. Creatinine Clearance 174 mL/min (70-130); Calcium 8.9 mg/dL (7.8-10.44); Carbon Dioxide 33 mmol/L (23-31); Chloride 97 mmol/L (98-107); Estimated GFR-MDRD Greater than 90; Globulin 3.2 g/dL (2.4-3.5); Protein, Total 6.2 g/dL (5.8-8.1)
--- NOTE | 2017-02-13 07:15 | PDOC.FM ---
- Subjective Subjective: Pt doing well overnight. Denies any headache. Pain being well controlled. Denies any SOB, chest pain. Denies any fevers or chills. Denies any nausea, vomitting, diarrhea. No acute events overnight. - Objective MAR Reviewed: Yes Vital Signs & Weight: Vital Signs (12 hours) Temp Pulse Resp BP BP Pulse Ox 02/13/17 04:00 97.4 F L 66 18 127/60 93 L 02/13/17 00:00 98.7 F 67 18 97/53 L 93 L 02/12/17 19:59 97.5 F L 70 18 98 02/12/17 19:48 97.5 F L 70 18 110/53 L 98 Weight Admit Weight 120.338 kg Weight 148.3 g I&O: 02/12/17 02/13/17 02/14/17 06:59 06:59 06:59 Intake Total 720 1320 Output Total 3950 1500 Balance -3230 -180 Result Diagrams: 02/13/17 05:11 02/13/17 05:11 Radiology Reviewed by me: Yes (CXR pending to be taken today) <Ray Cabrera - Last Filed: 02/13/17 07:14> - Objective Vital Signs & Weight: Vital Signs (12 hours) Temp Pulse Resp BP BP Pulse Ox 02/13/17 08:41 75 02/13/17 08:40 77 02/13/17 08:00 98.1 F 75 17 139/84 94 L 02/13/17 04:00 97.4 F L 66 18 127/60 93 L 02/13/17 00:00 98.7 F 67 18 97/53 L 93 L Weight Admit Weight 265 lb 4.8 oz Weight 5.231 oz I&O: 02/12/17 02/13/17 02/14/17 06:59 06:59 06:59 Intake Total 720 1320 Output Total 3950 1500 Balance -3230 -180 Result Diagrams: 02/13/17 05:11 02/13/17 05:11 <Bakari Murillo - Last Filed: 02/13/17 11:01> Phys Exam - Physical Examination HEENT: moist MMs Neck: no nodes JVD to Jaw line Respiratory: no wheezing, no rales Decreased breath sounds at the bases Cardiovascular: no significant murmur Irregularly Irregular, Gastrointestinal: soft, non-tender, no distention, positive bowel sounds Musculoskeletal: pulses present Edema very much improved. +1 pitting edema in LE bilaterally Neurological: non-focal, normal sensation Psychiatric: normal affect, A&O x 3 Skin: no rash <Ray Cabrera - Last Filed: 02/13/17 07:14> Dx/Plan (1) Heart failure Code(s): I50.9 - HEART FAILURE, UNSPECIFIED Status: Acute Qualifiers: Heart failure type: unspecified heart failure type Heart failure chronicity : acute Qualified Code(s): I50.9 - Heart failure, unspecified Plan: -pt states he had an Echo 3 months ago at outside facility. States everything was normal. Requested records from [place] -ECHO: EF 25-30%. Inferior wall akinetic. R and L ventricles dilated -On IV lasix BID -Started on Lisinopril. -Cardiology consulted-Dr. Crain, will continue to follow recommendations -Will await decision for cath. Diuresing more to make more stable for cath -Switched metoprolol to carvedilol, increased dose of carvedilol as heart rate was elevated yesterday -Strict I/Os and daily weights for monitoring. Heart Healthy diet -Dietary and Heart Failure team consulted for counseling on disease management -CXR pending today. (2) Paroxysmal atrial fibrillation Code(s): I48.0 - PAROXYSMAL ATRIAL FIBRILLATION Status: Acute Plan: -hx of a.fib -Pt currently in A.fib -Rate controlled at this time. -On tele monitor -Cardiology consulted- Dr. Crain (3) Nonsustained ventricular tachycardia Code(s): I47.2 - VENTRICULAR TACHYCARDIA Status: Acute Plan: Nonsustained. Had about 10 beats of ventricular tachycardia yesterday. -On tele monitor. Will continue to observe. -Currently in A. fib rate controlled. -Dr. Crain consulted and following (4) History of coronary artery bypass surgery Status: Acute Plan: -history of 2 CABGs in the past -Continue home meds -Troponins in indeterminate range, trended down. (5) HTN (hypertension) Code(s): I10 - ESSENTIAL (PRIMARY) HYPERTENSION Status: Acute Plan: -Started on lisinopril. Metoprolol switched to Carvedilol. Carvedilol dose increased from 12.5 to 25 bid -BP stable. (6) Non-alcoholic fatty liver disease Status: Chronic Plan: [facility] -Will await records. -Bili stable (7) Transaminitis Code(s): R74.0 - NONSPEC ELEV OF LEVELS OF TRANSAMNS & LACTIC ACID DEHYDRGNSE Status: Acute Plan: -Hepatitis panel negative -Could be due to NAFLD and congestion from heart failure -Will continue to follow with CMPs at this time -Will get records from [place] and primary care as patient states has recently been worked up a few months ago (8) HLD (hyperlipidemia) Code(s): E78.5 - HYPERLIPIDEMIA, UNSPECIFIED Status: Acute Plan: -continue home meds (9) Hyperbilirubinemia Code(s): E80.6 - OTHER DISORDERS OF BILIRUBIN METABOLISM Status: Acute Plan: -Bili stable -Likely due to NAFLD and congestion from heart failure -No abdominal pain -Awaiting outside records (10) Leukocytosis Code(s): D72.829 - ELEVATED WHITE BLOOD CELL COUNT, UNSPECIFIED Status: Resolved Plan: -WBC trended down today. -Possible Pneumonia noted on CXR. -Pt is nonfebrile at this time -Took two rounds of abx the week prior. -Will continue to follow with CBC and follow for signs of infection <Ray Cabrera - Last Filed: 02/13/17 07:14> Attending Addendum - Attending Addendum I personally evaluated the patient and discussed the management with Dr. Cabrera I agree with the History, Examination, Assessment and Plan documented above with any addition or exceptions noted below. He continues to improve. CHF is getting better on carvedilol and lisinopril. One concern is an infiltrate on his CXR. He was treated for pneumonia at the [place] with a Zpack and 5 days of Levaquin. His WBC are improving as is his cough. No fever. Pulmonary is seeing him, but I think he does not have active pneumonia at this time. <Bakari Murillo - Last Filed: 02/13/17 11:01>
[2017-02-13] MEDS: Furosemide 40 MG/4 ML VIAL SLOW IVP SCH ×2 (07:21→14:08)
[2017-02-13] MEDS ORDERED: Communication Order-Pharmacy FS SCH (07:30)
--- NOTE | 2017-02-13 08:01 | PRG ---
DATE OF SERVICE: 02/13/2017 SUBJECTIVE: Mr. Mullins is feeling better today. He said he is breathing better. It looks like he had a pretty good diuresis yesterday during the day, 4 liters out, but not much flu id last night. PHYSICAL EXAMINATION: LUNGS: Clear. CARDIAC: Irregular, irregular. ABDOMEN: Soft, nontender. EXTREMITIES: No edema. ASSESSMENT: 1. Coronary artery disease, status post bypass on 2 different occasions. . 2. Congestive heart failure, systolic, acute on chronic, slowly improving. 3. Chronic obstructive pulmonary disease. 4. Peripheral vascular disease, severe. PLAN: 1. Chest x-ray is ordered. 2. Tentatively planned cardiac catheterization Wednesday. Discussed risk of stroke, heart attack, iodi ne allergy, interfering with of blood supply to the leg or kidney, stent thrombosis, stent restenosi s in the event stenting is indicated. He understands and wishes to proceed. He understands it may not be possible to do the catheterization from the legs, but will give it an attempt. If we are uns uccessful I think consideration for working on the peripheral arteries at a later time can be given. The patient understands the guarded prognosis and wishes to proceed on Wednesday.
--- NOTE | 2017-02-13 08:13 | RAD ---
PORTABLE UPRIGHT CHEST 1 VIEW: HISTORY: A 67-year-old male with congestive heart failure. COMPARISON: 02/09/17. FINDINGS: Extensive consolidating alveolar parenchymal change throughout the right lung. Increased markings i n the left chest with some blunting of the left costophrenic angle and some linear stranding in the left base. IMPRESSION: Worsening confluent opacity throughout the entire right lung, evidence for right lung pneumonia. Bi lateral vascular congestion with some linear changes in the left base and costophrenic angle probabl y related to coexistent congestive heart failure. The right chest has become more opaque from the p rior study of 02/09. Continue short-term followup. POS: [facility]
[2017-02-13] MEDS: Lisinopril 5 MG TAB PO SCH (08:40)
[2017-02-13] MEDS: Potassium Chloride 20 MEQ TAB PO SCH ×2 (08:40→17:41)
[2017-02-13] MEDS: Carvedilol 25 MG TAB PO SCH ×2 (08:40→17:42)
[2017-02-13] MEDS: Enoxaparin Sodium 100 MG/ML SYRINGE SC SCH ×2 (08:41→20:53)
[2017-02-13] MEDS: Digoxin 0.125 MG TAB PO SCH (08:41)
[2017-02-13] MEDS: HYDROcodone/Acetaminophen 5/325 mg Tablet PO PRN ×2 (08:45→17:42)
[2017-02-13] MEDS: Ipratropium Bromide 0.06% Nasal Inhaler 15ml EA NARE SCH (08:50)
[2017-02-13] MEDS: tiZANidine HCl 4 MG TAB PO SCH (20:48)
[2017-02-13] MEDS: Simvastatin 40 MG TAB PO SCH (20:48)
[2017-02-13] MEDS: Aspirin 81 mg Enteric Coated Tablet PO SCH (20:48)
[2017-02-13] MEDS: hydrOXYzine 10 MG TAB PO SCH (20:48)
[2017-02-13] MEDS: HYDROcodone/Acetaminophen 10/325 mg Tablet PO SCH (20:49)
[2017-02-13] MEDS: Zolpidem Tartrate 5 MG TAB PO SCH (20:49)
[2017-02-14 06:00] LABS: #Eosinphils 0.4 thou/uL (0.0-0.7); #Monocytes 0.5 thou/uL (0.11-0.59); #Neutrophils 4.2 thou/uL (1.40-6.50); %Basophils 0.5 % (0.0-1.0); %Eosinophils 5.9 % (0.0-10.0); %Lymphocytes 27.2 % (21.0-51.0); %Monocytes 7.5 % (0.0-10.0); Mean Platelet Volume 8.5 fL (7.4-10.4); Red Blood Cell (RBC) Count 4.67 mill/uL (4.70-6.10); White Blood Cell (WBC) Count 7.2 thou/uL (4.8-10.8)
[2017-02-14] MEDS: Furosemide 40 MG/4 ML VIAL SLOW IVP SCH ×2 (06:21→15:00)
[2017-02-14 06:26] LABS: ALT (SGPT) 36 U/L (8-55); AST (SGOT) 30 U/L (5-34); Alkaline Phosphatase 221 U/L (40-150); BUN (Urea Nitrogen) 17 mg/dL (8.4-25.7); Bilirubin, Total 1.9 mg/dL (0.2-1.2); Calc. Creatinine Clearance 0 mL/min (70-130); Calcium 8.9 mg/dL (7.8-10.44); Estimated GFR-MDRD 84; Protein, Total 5.9 g/dL (5.8-8.1)
[2017-02-14 06:36] LABS: Anion Gap 14 mmol/L (10-20); Carbon Dioxide 34 mmol/L (23-31); Chloride 93 mmol/L (98-107)
--- NOTE | 2017-02-14 07:21 | PDOC.FM ---
- Subjective Subjective: Pt doing well this morning. Denies any acute events overnight. Denies any SOB. Pt says yesterday he was up taking a shower, walking around and never had any problems. Denies any fevers, chills. Denies any chest pain, nausea, vomitting. No other concerns or complaints at this time - Objective MAR Reviewed: Yes Vital Signs & Weight: Vital Signs (12 hours) Temp Pulse Resp BP Pulse Ox 02/14/17 04:35 97.7 F 62 14 94/60 97 02/14/17 03:09 96 02/13/17 23:58 70 02/13/17 20:47 98.6 F 75 16 101/58 L 96 02/13/17 20:42 98.6 F 75 16 96 Weight Admit Weight 120.338 kg Weight 247.5 g I&O: 02/13/17 02/14/17 02/15/17 06:59 06:59 06:59 Intake Total 1320 1220 Output Total 1500 3040 Balance -180 -1820 Result Diagrams: 02/14/17 05:42 02/14/17 05:42 Radiology Reviewed by me: Yes Radiology: 02/13 CXR: Worsening confluent opacity throughout the entire r. lung, evidence for r. lung pneumonia. bilateral vascular congestion w/ some linear changes in the left base and costophrenic angle probably related to coexistent CHF. R. chest more opaque <Ray Cabrera - Last Filed: 02/14/17 07:19> - Objective Vital Signs & Weight: Vital Signs (12 hours) Temp Pulse Pulse Pulse Resp BP BP 02/14/17 09:39 88 02/14/17 09:38 89 02/14/17 09:24 88 94 162/93 H 112/56 L 02/14/17 08:00 98.3 F 89 17 02/14/17 04:35 97.7 F 62 14 02/14/17 03:09 02/13/17 23:58 70 BP Pulse Ox Pulse Ox Pulse Ox 02/14/17 09:39 02/14/17 09:38 02/14/17 09:24 95 90 L 02/14/17 08:00 112/56 L 02/14/17 04:35 94/60 97 02/14/17 03:09 96 02/13/17 23:58 Weight Admit Weight 265 lb 4.8 oz Weight 8.73 oz I&O: 02/13/17 02/14/17 02/15/17 06:59 06:59 06:59 Intake Total 1320 1220 Output Total 1500 3040 Balance -180 -1820 Result Diagrams: 02/14/17 05:42 02/14/17 05:42 <Bakari Murillo - Last Filed: 02/14/17 10:52> Phys Exam - Physical Examination HEENT: moist MMs, oral pharynx no lesions Neck: no nodes, supple JVD to jaw line Respiratory: no wheezing, no rales, no rhonchi Decreased breath sounds more on R. than left Cardiovascular: no significant murmur, no rub Irregularly irregular Gastrointestinal: soft, non-tender, no distention, positive bowel sounds Musculoskeletal: pulses present, edema present +1 pitting edema. Neurological: non-focal, normal sensation, moves all 4 limbs Psychiatric: normal affect, A&O x 3 Skin: no rash <Ray Cabrera - Last Filed: 02/14/17 07:19> Dx/Plan (1) Heart failure Code(s): I50.9 - HEART FAILURE, UNSPECIFIED Status: Acute Qualifiers: Heart failure type: unspecified heart failure type Heart failure chronicity : acute Qualified Code(s): I50.9 - Heart failure, unspecified Plan: -pt states he had an Echo 3 months ago at outside facility. States everything was normal. Requested records from [place] -ECHO: EF 25-30%. Inferior wall akinetic. R and L ventricles dilated -On IV lasix BID -Started on Lisinopril. -Cardiology consulted-Dr. Crain, will continue to follow recommendations -Plan for cath tmrw. Diuresing more to make more stable for cath -Switched metoprolol to carvedilol, increased dose of carvedilol as heart rate was elevated yesterday -Strict I/Os and daily weights for monitoring. Heart Healthy diet -Dietary and Heart Failure team consulted for counseling on disease management -CXR shows worsening opacity from previous study. Bicarb slowly increasing the last few days. Will check an ABG today. Will continue diuresis. -Xray reads pneumonia, pt has been afebrile, no increased white count other than one day. Got two doses of abx before admission. Will continue to monitor for now (2) Paroxysmal atrial fibrillation Code(s): I48.0 - PAROXYSMAL ATRIAL FIBRILLATION Status: Acute Plan: -hx of a.fib -Pt currently in A.fib -Rate controlled at this time. -On tele monitor -Cardiology consulted- Dr. Crain (3) Nonsustained ventricular tachycardia Code(s): I47.2 - VENTRICULAR TACHYCARDIA Status: Acute Plan: Nonsustained. Had about 10 beats of ventricular tachycardia a few days ago. -On tele monitor. Will continue to observe. -Currently in A. fib rate controlled. -Dr. Crain consulted and following (4) History of coronary artery bypass surgery Status: Acute Plan: -history of 2 CABGs in the past -Plan for heart cath tmrw -Continue home meds -Troponins in indeterminate range, trended down. (5) HTN (hypertension) Code(s): I10 - ESSENTIAL (PRIMARY) HYPERTENSION Status: Acute Plan: -Started on lisinopril. Metoprolol switched to Carvedilol. Carvedilol dose increased from 12.5 to 25 bid -BP a little low. Will await recommendations from Dr. Crain. May need to cut back dose on one of his BP meds (6) Non-alcoholic fatty liver disease Status: Chronic Plan: -[facility] -Will await records. -Bili stable (7) Transaminitis Code(s): R74.0 - NONSPEC ELEV OF LEVELS OF TRANSAMNS & LACTIC ACID DEHYDRGNSE Status: Acute Plan: -Hepatitis panel negative -Could be due to NAFLD and congestion from heart failure -Will continue to follow with CMPs at this time -[facility] as patient states has recently been worked up a few months ago (8) HLD (hyperlipidemia) Code(s): E78.5 - HYPERLIPIDEMIA, UNSPECIFIED Status: Acute Plan: -continue home meds (9) Hyperbilirubinemia Code(s): E80.6 - OTHER DISORDERS OF BILIRUBIN METABOLISM Status: Acute Plan: -Bili stable -Likely due to NAFLD and congestion from heart failure -No abdominal pain -Awaiting outside records (10) Leukocytosis Code(s): D72.829 - ELEVATED WHITE BLOOD CELL COUNT, UNSPECIFIED Status: Resolved Plan: -WBC trended down today. -Possible Pneumonia noted on CXR. -Pt is nonfebrile at this time -Took two rounds of abx the week prior. -Will continue to follow with CBC and follow for signs of infection <Ray Cabrera - Last Filed: 02/14/17 07:19> Attending Addendum - Attending Addendum I personally evaluated the patient and discussed the management with Dr. Cabrera. I agree with the History, Examination, Assessment and Plan documented above with any addition or exceptions noted below. He is doing well as far as CHF goes. We think we can stop oxygen. He is scheduled for a cath tomorrow. <Bakari Murillo - Last Filed: 02/14/17 10:52>
[2017-02-14 07:41] LABS: Oxyhemoglobin 87.5 % (94.0-97.0); Sodium 137 mmol/L (135-148)
[2017-02-14 07:43] LABS: Modified Allen's Test POSITIVE; Vent NO
[2017-02-14 07:44] LABS: Mode NC
[2017-02-14] MEDS: Lisinopril 5 MG TAB PO SCH (09:38)
[2017-02-14] MEDS: Ipratropium Bromide 0.06% Nasal Inhaler 15ml EA NARE SCH (09:38)
[2017-02-14] MEDS: Potassium Chloride 20 MEQ TAB PO SCH ×2 (09:38→17:00)
[2017-02-14] MEDS: Carvedilol 25 MG TAB PO SCH ×2 (09:38→17:00)
[2017-02-14] MEDS: Digoxin 0.125 MG TAB PO SCH (09:39)
[2017-02-14] MEDS: Enoxaparin Sodium 100 MG/ML SYRINGE SC SCH (09:39)
[2017-02-14] MEDS: HYDROcodone/Acetaminophen 5/325 mg Tablet PO PRN ×2 (09:52→15:18)
[2017-02-14] MEDS: hydrOXYzine 10 MG TAB PO SCH (21:18)
[2017-02-14] MEDS: tiZANidine HCl 4 MG TAB PO SCH (21:18)
[2017-02-14] MEDS: HYDROcodone/Acetaminophen 10/325 mg Tablet PO SCH (21:18)
[2017-02-14] MEDS: Zolpidem Tartrate 5 MG TAB PO SCH (21:19)
[2017-02-14] MEDS: Aspirin 81 mg Enteric Coated Tablet PO SCH (21:19)
[2017-02-14] MEDS: Simvastatin 40 MG TAB PO SCH (21:19)
[2017-02-15] MEDS ORDERED: Sodium Chloride 0.9% 1,000 ML IV SCH (06:00)
[2017-02-15 06:07] LABS: #Basophils 0.1 thou/uL (0.0-0.2); #Eosinphils 0.5 thou/uL (0.0-0.7); #Lymphocytes 1.9 thou/uL (1.20-3.40); #Monocytes 0.8 thou/uL (0.11-0.59); #Neutrophils 4.6 thou/uL (1.40-6.50); %Basophils 0.8 % (0.0-1.0); %Eosinophils 6.2 % (0.0-10.0); %Lymphocytes 24.6 % (21.0-51.0); %Monocytes 9.8 % (0.0-10.0); Hematocrit 50.2 % (42.0-52.0); Mean Platelet Volume 8.9 fL (7.4-10.4); Red Blood Cell (RBC) Count 4.95 mill/uL (4.70-6.10); White Blood Cell (WBC) Count 7.8 thou/uL (4.8-10.8)
[2017-02-15] MEDS: Potassium Chloride 20 MEQ TAB PO SCH ×2 (06:08→17:18)
[2017-02-15] MEDS: Digoxin 0.125 MG TAB PO SCH (06:08)
[2017-02-15] MEDS: Carvedilol 25 MG TAB PO SCH (06:08)
[2017-02-15 06:31] LABS: ALT (SGPT) 31 U/L (8-55); AST (SGOT) 32 U/L (5-34); Alkaline Phosphatase 234 U/L (40-150); Anion Gap 12 mmol/L (10-20); BUN (Urea Nitrogen) 19 mg/dL (8.4-25.7); Bilirubin, Total 1.8 mg/dL (0.2-1.2); Calc. Creatinine Clearance 132 mL/min (70-130); Carbon Dioxide 36 mmol/L (23-31); Chloride 91 mmol/L (98-107); Estimated GFR-MDRD 89; Globulin 3.2 g/dL (2.4-3.5); Protein, Total 6.2 g/dL (5.8-8.1)
[2017-02-15] MEDS ORDERED: Diazepam 5 MG TAB PO SCH (07:00)
--- NOTE | 2017-02-15 08:37 | PDOC.FM ---
- Subjective Subjective: Pt reports doing well this morning. Denies any acute event overnight. Denies any chest pain or SOB. Pt reports peeing well. Pt says he has gotten up and moved around without any problems. Denies any headaches or any other pain at this time. Plan is for cath today. - Objective MAR Reviewed: Yes Vital Signs & Weight: Vital Signs (12 hours) Temp Pulse Resp BP Pulse Ox 02/15/17 08:00 98.2 F 87 18 90 L 02/15/17 07:58 98.2 F 87 18 109/59 L 90 L 02/15/17 06:08 78 02/15/17 04:55 80 18 100/54 L 02/15/17 04:00 97.9 F 74 18 85/51 L 90 L 02/15/17 03:13 91 L 02/15/17 00:00 97.6 F 70 16 99/53 L 91 L Weight Admit Weight 120.338 kg Weight 108.908 kg I&O: 02/14/17 02/15/17 02/16/17 06:59 06:59 06:59 Intake Total 1220 1460 Output Total 3040 1920 Balance -1820 460 Result Diagrams: 02/15/17 04:34 02/15/17 04:34 Radiology Reviewed by me: Yes (Official read on CXR today pending. Minimally improved from previous) <Ray Cabrera - Last Filed: 02/15/17 08:36> - Objective Vital Signs & Weight: Vital Signs (12 hours) Temp Pulse Resp BP Pulse Ox 02/15/17 08:00 98.2 F 87 18 90 L 02/15/17 07:58 98.2 F 87 18 109/59 L 90 L 02/15/17 06:08 78 02/15/17 04:55 80 18 100/54 L 02/15/17 04:00 97.9 F 74 18 85/51 L 90 L 02/15/17 03:13 91 L Weight Admit Weight 120.338 kg Weight 108.908 kg I&O: 02/14/17 02/15/17 02/16/17 06:59 06:59 06:59 Intake Total 1220 1460 Output Total 3040 1920 Balance -1820 -460 Result Diagrams: 02/15/17 04:34 02/15/17 04:34 <WinterEmmanuel Ellis Cory - Last Filed: 02/15/17 12:28> Phys Exam - Physical Examination HEENT: moist MMs, oral pharynx no lesions Neck: no nodes, supple, full ROM JVD to jaw line Respiratory: no wheezing, no rales Decreased breath sounds in R. lung. Some mild rhonchi present bilaterally Cardiovascular: no significant murmur, no rub Irregularly irregular Gastrointestinal: soft, non-tender, no distention, positive bowel sounds Musculoskeletal: pulses present +1 pitting edema. Stable from yesterday Neurological: non-focal, normal sensation, moves all 4 limbs Psychiatric: normal affect, A&O x 3 Skin: no rash <MargotelliotRay - Last Filed: 02/15/17 08:36> Dx/Plan (1) Heart failure Code(s): I50.9 - HEART FAILURE, UNSPECIFIED Status: Acute Qualifiers: Heart failure type: unspecified heart failure type Heart failure chronicity : acute Qualified Code(s): I50.9 - Heart failure, unspecified Plan: -pt states he had an Echo 3 months ago at outside facility. States everything was normal. Requested records from [place] -ECHO: EF 25-30%. Inferior wall akinetic. R and L ventricles dilated -On IV lasix BID -Started on Lisinopril. -Cardiology consulted-Dr. Crain, will continue to follow recommendations -Plan is for heart Cath today. Will await results and further plan. -Switched metoprolol to carvedilol, increased dose of carvedilol as heart rate was elevated a few days ago. BP low again. will possibly need to decrease dose. Will await recommendations from Cardiology -Strict I/Os and daily weights for monitoring. Heart Healthy diet -Dietary and Heart Failure team consulted for counseling on disease management -02/13 CXR shows worsening opacity from previous study. Bicarb slowly increasing the last few days. -Xray reads pneumonia, pt has been afebrile, no increased white count other than one day. Got two doses of abx before admission. Will continue to monitor for now -02/15 CXR official read pending. Possibly improved from the . Will continue with diuresis (2) Paroxysmal atrial fibrillation Code(s): I48.0 - PAROXYSMAL ATRIAL FIBRILLATION Status: Acute Plan: -hx of a.fib -Pt currently in A.fib -Rate controlled at this time. -On tele monitor -Cardiology consulted- Dr. Crain (3) Nonsustained ventricular tachycardia Code(s): I47.2 - VENTRICULAR TACHYCARDIA Status: Acute Plan: Nonsustained. Had about 10 beats of ventricular tachycardia a few days ago. -On tele monitor. Will continue to observe. -Currently in A. fib rate controlled. -Dr. Crain consulted and following (4) History of coronary artery bypass surgery Status: Acute Plan: -history of 2 CABGs in the past -Plan for heart cath today to assess patency of stents -Continue home meds -Troponins in indeterminate range, trended down. (5) HTN (hypertension) Code(s): I10 - ESSENTIAL (PRIMARY) HYPERTENSION Status: Acute Plan: -Started on lisinopril. Metoprolol switched to Carvedilol. Carvedilol dose increased from 12.5 to 25 bid -BP a little low. Will await recommendations from Dr. Crain. -Decreased lisinopril from 5 to 2.5 mg. Will await further recommendations on cutting back on other BP medications per Cardiology (6) Non-alcoholic fatty liver disease Status: Chronic Plan: -Goes to the [place]. Has been worked up in the [facility] -Will await records. -Bili stable -AST/ALT have trended into normal range. Likely due to some heart failure congestion on top of NAFLD (7) Transaminitis Code(s): R74.0 - NONSPEC ELEV OF LEVELS OF TRANSAMNS & LACTIC ACID DEHYDRGNSE Status: Acute Plan: -Hepatitis panel negative -Likely due to NAFLD and congestion from heart failure -Will continue to follow with CMPs at this time -[facility] as patient states has recently been worked up a few months ago (8) HLD (hyperlipidemia) Code(s): E78.5 - HYPERLIPIDEMIA, UNSPECIFIED Status: Acute Plan: -continue home meds (9) Hyperbilirubinemia Code(s): E80.6 - OTHER DISORDERS OF BILIRUBIN METABOLISM Status: Acute Plan: -Bili stable -Likely due to NAFLD and congestion from heart failure -No abdominal pain -Awaiting outside records (10) Leukocytosis Code(s): D72.829 - ELEVATED WHITE BLOOD CELL COUNT, UNSPECIFIED Status: Resolved Plan: -WBC stable in normal range -Possible Pneumonia noted on CXR. -Pt is nonfebrile at this time -Took two rounds of abx the week prior. -Will continue to follow with CBC and follow for signs of infection <Ray Cabrera - Last Filed: 02/15/17 08:36> Attending Addendum - Attending Addendum I personally evaluated the patient and discussed the management with Dr. Cabrera. I agree with the History, Examination, Assessment and Plan documented above with any addition or exceptions noted below. Patient with new onset CHF with reduced EF. He underwent heart cath this morning and we are awaiting final report from that. He is symptomatically improved as he has diuresed >8L over the last few days. His CXR mildly improved , and there is currently no evidence of PNA, including no fever, productive cough, hypoxia. It is possible this is resolving old infection versus fluid overload. His lung exam is overall benign with the exception of mild diffuse crackles. We will continue diuresis. Will check Procalcitonin to eval for possible bacterial infection. Continue medication titration and await final cardiology recs. <Emmanuel Winter - Last Filed: 02/15/17 12:28>
[2017-02-15] MEDS ORDERED: Heparin 10,000 UNITS/1 ML VIAL ONE (08:38)
--- NOTE | 2017-02-15 09:26 | RAD ---
PORTABLE CHEST 1 VIEW: Date: 02/15/17 Time: 0634 hours HISTORY: CHF. FINDINGS/IMPRESSION: Comparison made with exam of 02/13/17. There is minimal improvement in the aeration of the right lung compared to the previous study. The e xam is otherwise stable. POS: [facility]
[2017-02-15] MEDS ORDERED: Midazolam HCl 2 mg/2 ml Vial ONE (09:29)
[2017-02-15] MEDS ORDERED: Fentanyl 100 MCG/2 ML VIAL ONE (09:29)
[2017-02-15] MEDS ORDERED: Acetaminophen/Codeine 30-300mg Tablet PO PRN ×2 (10:28)
[2017-02-15] MEDS ORDERED: traMADol HCl 50 MG TAB PO PRN (10:28)
[2017-02-15] MEDS ORDERED: Nitroglycerin 0.4 MG TAB (25 Tab Bottle) SL PRN (10:28)
[2017-02-15] MEDS ORDERED: Sodium Chloride 0.9% 200 ML IV PRN (10:30)
[2017-02-15] MEDS: Lisinopril 2.5 MG TAB PO SCH (13:27)
[2017-02-15] MEDS ORDERED: Iopamidol 370 76% 100 ML VIAL ONE (14:09)
[2017-02-15] MEDS ORDERED: Iopamidol 370 76% 50 ML VIAL FS ONE (14:09)
[2017-02-15] MEDS: HYDROcodone/Acetaminophen 5/325 mg Tablet PO PRN (14:47)
[2017-02-15] MEDS: Carvedilol 6.25 MG TAB PO SCH (17:18)
[2017-02-15 18:42] LABS: LegU Control Bar Appear? YES (CONTROL BAR); LegionellaU Control Bkground? CLEAR/WHITE (CLR/WHITE); Strp pneuU Control Background? CLEAR/WHITE (CLR/WHITE); Strp pneumo Control Bar Appear YES (CONTROL BAR)
--- NOTE | 2017-02-15 19:11 | CON ---
DATE OF CONSULTATION: 02/15/2017 HISTORY OF PRESENT ILLNESS: A 67-year-old gentleman admitted to the hospital with low oxygen satura tion. He normally seeks care at the [facility]. Locally, he has seen Dr. Crain in the past, numerous time s. His estimated ejection fraction has been running in the 20% to 25%. Surprisingly, he had no fevers, chills or sweats. He has had previous bypass surgery in 2 different occasions. Cardiac catheterization was done today , which shows none of the lesions were manageable with a stent. Surprisingly, he denies any fever, chills or chest pain. In fact, he denies difficulty breathing. He is a long time smoker. He has quit smoking following his very first bypass surgery. He has apparently had some workup for his cough on an outpatient basis. In fact, he has even seen a n ENT physician, I am told. On most days, he is able to walk maybe a half block without getting markedly short of breath. PAST MEDICAL HISTORY: Coronary artery disease, CHF, atrial fibrillation, lipidemia, hypertension, p robably some COPD, he has an inhaler at home. PAST SURGICAL HISTORY: Appendix; bypass surgery x2; orthopedic surgery, knee, shoulder; spinal surg nikki and tonsillectomy. SOCIAL HISTORY: Tobacco, quit smoking in 1990. MEDICATIONS: Metoprolol 100, potassium 20, albuterol, Tizanidine 4, hydralazine 3 times a day, zolp idem, Zoloft 100, omeprazole, hydrocodone, nebulizer nose spray. ALLERGIES: CEPHALOSPORINS. REVIEW OF SYSTEMS: Otherwise unremarkable. PHYSICAL EXAMINATION: VITAL SIGNS: His sats are 93% on 3 liters, pulse 87, temperature 98, and blood pressure 109/59. CHEST: Reveals bilateral crackles, without any wheezing. CARDIAC: Normal S1, S2. No gallops. LABORATORY AND IMAGING DATA: White count 7000, hemoglobin and hematocrit 15 and 50, platelet count is 252. His electrolytes are normal. X-ray shows extensive right-sided infiltrate, asymmetrical. IMPRESSION: 1. Chronic obstructive pulmonary disease exacerbation, bronchitis. 2. Cardiomyopathy, coronary artery disease, status post bypass, former smoker. PLAN: We will add neb treatments, antibiotics and steroids to the present regimen. Ambulation and supportive care. I will follow.
[2017-02-15] MEDS: hydrOXYzine 10 MG TAB PO SCH (20:56)
[2017-02-15] MEDS: HYDROcodone/Acetaminophen 10/325 mg Tablet PO SCH (20:56)
[2017-02-15] MEDS: Aspirin 81 mg Enteric Coated Tablet PO SCH (20:57)
[2017-02-15] MEDS: tiZANidine HCl 4 MG TAB PO SCH (20:57)
[2017-02-15] MEDS: Zolpidem Tartrate 5 MG TAB PO SCH (20:57)
[2017-02-15] MEDS: Simvastatin 40 MG TAB PO SCH (20:58)
[2017-02-16 05:11] LABS: #Basophils 0.1 thou/uL (0.0-0.2); #Eosinphils 0.5 thou/uL (0.0-0.7); #Lymphocytes 1.8 thou/uL (1.20-3.40); #Monocytes 0.9 thou/uL (0.11-0.59); #Neutrophils 4.3 thou/uL (1.40-6.50); %Basophils 0.9 % (0.0-1.0); %Lymphocytes 23.7 % (21.0-51.0); %Monocytes 12.2 % (0.0-10.0); Hematocrit 48.7 % (42.0-52.0); Mean Platelet Volume 8.5 fL (7.4-10.4); Red Blood Cell (RBC) Count 4.76 mill/uL (4.70-6.10); White Blood Cell (WBC) Count 7.5 thou/uL (4.8-10.8)
[2017-02-16 05:37] LABS: ALT (SGPT) 26 U/L (8-55); AST (SGOT) 33 U/L (5-34); Alkaline Phosphatase 229 U/L (40-150); Anion Gap 12 mmol/L (10-20); BUN (Urea Nitrogen) 14 mg/dL (8.4-25.7); Bilirubin, Total 1.5 mg/dL (0.2-1.2); Calc. Creatinine Clearance 160 mL/min (70-130); Calcium 9.2 mg/dL (7.8-10.44); Carbon Dioxide 31 mmol/L (23-31); Chloride 95 mmol/L (98-107); Estimated GFR-MDRD Greater than 90; Globulin 3.4 g/dL (2.4-3.5); Protein, Total 6.3 g/dL (5.8-8.1)
[2017-02-16] MEDS ORDERED: predniSONE 20 MG TAB PO SCH (08:00)
--- NOTE | 2017-02-16 08:42 | PDOC.FM ---
- Subjective Subjective: Pt doing well this morning. Denies any acute events overnight. No SOB no chest pain. Denies any other concerns or complaints at this time. Said he talked with Norm yesterday and discussed possibly going home on oxygen. - Objective Vital Signs & Weight: Vital Signs (12 hours) Temp Pulse Resp BP Pulse Ox 02/16/17 06:43 77 14 92 L 02/16/17 04:00 98.0 F 70 18 107/53 L 94 L Weight Admit Weight 120.338 kg Weight 110.813 kg I&O: 02/15/17 02/16/17 02/17/17 06:59 06:59 06:59 Intake Total 1460 940 Output Total 1920 1340 Balance -460 -400 Result Diagrams: 02/16/17 04:08 02/16/17 04:08 <Ray Cabrera - Last Filed: 02/16/17 08:39> - Objective Vital Signs & Weight: Vital Signs (12 hours) Temp Pulse Resp BP BP BP Pulse Ox 02/16/17 11:41 97.6 F 74 12 95/56 L 88 L 02/16/17 09:26 97.7 F 78 18 90 L 02/16/17 09:06 115/70 02/16/17 09:05 78 02/16/17 09:04 97.7 F 78 18 115/70 90 L 02/16/17 06:43 77 14 92 L 02/16/17 04:00 98.0 F 70 18 107/53 L 94 L Weight Admit Weight 120.338 kg Weight 110.813 kg I&O: 02/15/17 02/16/17 02/17/17 06:59 06:59 06:59 Intake Total 1460 940 Output Total 1920 1340 Balance -460 -400 Result Diagrams: 02/16/17 04:08 02/16/17 04:08 <Emmanuel Winter - Last Filed: 02/16/17 11:45> Phys Exam - Physical Examination HEENT: PERRLA, moist MMs, oral pharynx no lesions Neck: no nodes, supple, full ROM JVD up to jaw line Crackles noted on R. side. Decreased breath sounds at the bases Cardiovascular: RRR, no significant murmur Gastrointestinal: soft, non-tender, no distention, positive bowel sounds +1 pitting edema in Lower extremities bilaterally Neurological: non-focal, normal sensation Psychiatric: normal affect, A&O x 3 Skin: no rash, normal turgor <Ray Cabrera - Last Filed: 02/16/17 08:39> Dx/Plan (1) Heart failure Code(s): I50.9 - HEART FAILURE, UNSPECIFIED Status: Acute Plan: -pt states he had an Echo 3 months ago at outside facility. States everything was normal. Requested records from [place] -ECHO: EF 25-30%. Inferior wall akinetic. R and L ventricles dilated -On IV lasix BID -Started on Lisinopril. -Cardiology consulted-Dr. Crain, will continue to follow recommendations -s/p Heart cath yesterday. Nothing significant per results -Switched metoprolol to carvedilol, dose currently at 12.5. Dropped down from 25 as BP is low. -Strict I/Os and daily weights for monitoring. Heart Healthy diet -Dietary and Heart Failure team consulted for counseling on disease management -02/13 CXR shows worsening opacity from previous study. Bicarb slowly increasing the last few days. -Xray reads pneumonia, pt has been afebrile, no increased white count other than one day. Got two doses of abx before admission. Will continue to monitor for now -02/15 CXR official read pending. Possibly improved from the . Will continue with diuresis (2) Paroxysmal atrial fibrillation Code(s): I48.0 - PAROXYSMAL ATRIAL FIBRILLATION Status: Acute Plan: -hx of a.fib -Heart regular this morning -Rate controlled at this time. -On tele monitor -Cardiology consulted- Dr. Crain (3) Nonsustained ventricular tachycardia Code(s): I47.2 - VENTRICULAR TACHYCARDIA Status: Acute Plan: Nonsustained. Had about 10 beats of ventricular tachycardia a few days ago. -On tele monitor. Will continue to observe. -Regular rhythm this morning -Dr. Crain consulted and following (4) History of coronary artery bypass surgery Status: Acute Plan: -history of 2 CABGs in the past -s/p heart cath by Dr. Crain yesterday -Continue home meds -Troponins in indeterminate range, trended down. (5) HTN (hypertension) Code(s): I10 - ESSENTIAL (PRIMARY) HYPERTENSION Status: Acute Plan: -Started on lisinopril. Metoprolol switched to Carvedilol. Decreased carvedilol dose from 25 to 12.5 mg BID due to low BP -Decreased lisinopril from 5 to 2.5 mg. (6) Non-alcoholic fatty liver disease Status: Chronic Plan: -Goes to the [place]. Has been worked up in the [facility] -Will await records. -Bili stable -AST/ALT have trended into normal range. Likely due to some heart failure congestion on top of NAFLD (7) Transaminitis Code(s): R74.0 - NONSPEC ELEV OF LEVELS OF TRANSAMNS & LACTIC ACID DEHYDRGNSE Status: Acute Plan: -Hepatitis panel negative -Likely due to NAFLD and congestion from heart failure -Will continue to follow with CMPs at this time -Will get records from [facility] and primary care as patient states has recently been worked up a few months ago (8) HLD (hyperlipidemia) Code(s): E78.5 - HYPERLIPIDEMIA, UNSPECIFIED Status: Acute Plan: -continue home meds (9) Hyperbilirubinemia Code(s): E80.6 - OTHER DISORDERS OF BILIRUBIN METABOLISM Status: Acute Plan: -Bili stable -Likely due to NAFLD and congestion from heart failure -No abdominal pain -Awaiting outside records - Plan Plan: COPD Excacerbation -Due to results on CXR , Dr. Zheng with Pulmonology has been consulted -Started on Levaquin, Duonebs and Prednisone -No fevers or chills overnight. -Still requiring 2 L O2 overnight. May need snf O2. -Dr. Zheng is following. <Ray Cabrera - Last Filed: 02/16/17 08:39> Attending Addendum - Attending Addendum I personally evaluated the patient and discussed the management with Dr. Cabrera. I agree with the History, Examination, Assessment and Plan documented above with any addition or exceptions noted below. Patient doing well from symptom standpoint. He has been restart on diuretics, and consult for Lifevest has been placed. Appreciate cardiology recs. Pulm has seen patient and thinks some of respiratory symptoms are result of COPD exacerbation, therefore Levaquin and steroids have been started. Continue to monitor I/O and diurese. Will do O2 test today to see if he qualifies for O2 outpatient and work on setting that up. Hopeful discharge tomorrow if doing well. <Emmanuel Winter R - Last Filed: 02/16/17 11:45>
[2017-02-16] MEDS: Digoxin 0.125 MG TAB PO SCH (09:05)
[2017-02-16] MEDS: Carvedilol 6.25 MG TAB PO SCH ×2 (09:06→16:51)
[2017-02-16] MEDS: HYDROcodone/Acetaminophen 5/325 mg Tablet PO PRN ×2 (09:17→14:47)
--- NOTE | 2017-02-16 09:59 | PRG ---
DATE OF SERVICE: 02/16/2017 SUBJECTIVE: Mr. Tony Mullins is doing better today. He feels well. PHYSICAL EXAMINATION: VITAL SIGNS: Blood pressure 107/53, pulse 70, irregularly irregular. LUNGS: Clear. CARDIAC: Irregular, irregular. ABDOMEN: Soft, nontender. EXTREMITIES: There is no edema. ASSESSMENT: 1. Coronary artery disease with ischemic cardiomyopathy, ejection fraction less than 35%. Previous myocardial infarction. 2. Chronic atrial fibrillation. 3. Nonsustained ventricular tachycardia. 4. Hypercholesterolemia, being treated. 5. Hypertension, being treated. PLAN: 1. I ordered LifeVest device, aiming to go home tomorrow. 2. Home on the same medicines. 3. Will need anticoagulation. Hopefully, the patient can obtain some of the newer oral anticoagula nts, will begin anticoagulation tomorrow.
--- NOTE | 2017-02-16 13:48 | PRG ---
DATE OF SERVICE: 02/16/2017 SUBJECTIVE: This morning, he is better, less short of breath, less cough. OBJECTIVE: VITAL SIGNS: Sats are 90% on 2 liters, temperature 98, blood pressure 107/53. CHEST: Bilateral crackles without any wheezing. CARDIAC: Normal S1, S2. No gallops. ABDOMEN: Soft. No masses. LABORATORY: White count 7000, hemoglobin and hematocrit 15 and 48. Sodium 130, potassium normal. IMPRESSION: Coronary artery disease, status post catheterization; chronic obstructive pulmonary dis ease, possibly pneumonia. He appears to have improved on Levaquin, steroids, nebulizer treatments. PLAN: We will follow. Repeat chest x-ray in the morning.
[2017-02-16] MEDS ORDERED: Furosemide 20 MG TAB PO SCH (14:00)
[2017-02-16] MEDS: Furosemide 40 MG TAB PO SCH (14:46)
[2017-02-16] MEDS: tiZANidine HCl 4 MG TAB PO SCH (20:34)
[2017-02-16] MEDS: hydrOXYzine 10 MG TAB PO SCH (20:34)
[2017-02-16] MEDS: HYDROcodone/Acetaminophen 10/325 mg Tablet PO SCH (20:35)
[2017-02-16] MEDS: Aspirin 81 mg Enteric Coated Tablet PO SCH (20:35)
[2017-02-16] MEDS: Zolpidem Tartrate 5 MG TAB PO SCH (20:35)
[2017-02-16] MEDS: Simvastatin 40 MG TAB PO SCH (20:36)
[2017-02-16] MEDS: Lisinopril 2.5 MG TAB PO SCH (22:18)
[2017-02-16] MEDS: Potassium Chloride 20 MEQ TAB PO SCH (22:18)
[2017-02-17 05:07] LABS: Hematocrit 52.6 % (42.0-52.0)
[2017-02-17 05:15] LABS: #Basophils 0.1 thou/uL (0.0-0.2); #Eosinphils 0.1 thou/uL (0.0-0.7); #Lymphocytes 1.1 thou/uL (1.20-3.40); #Monocytes 0.7 thou/uL (0.11-0.59); #Neutrophils 6.2 thou/uL (1.40-6.50); %Basophils 1.3 % (0.0-1.0); %Eosinophils 0.8 % (0.0-10.0); %Monocytes 8.4 % (0.0-10.0); Hematocrit 54.8 % (42.0-52.0); Mean Platelet Volume 9.8 fL (7.4-10.4); Red Blood Cell (RBC) Count 5.45 mill/uL (4.70-6.10); White Blood Cell (WBC) Count 8.2 thou/uL (4.8-10.8)
[2017-02-17 06:01] LABS: Anion Gap 12 mmol/L (10-20); BUN (Urea Nitrogen) 12 mg/dL (8.4-25.7); Calc. Creatinine Clearance 173 mL/min (70-130); Calcium 9.3 mg/dL (7.8-10.44); Carbon Dioxide 29 mmol/L (23-31); Chloride 97 mmol/L (98-107); Estimated GFR-MDRD Greater than 90
[2017-02-17] MEDS ORDERED: Potassium Chloride 20 MEQ TAB PO SCH (08:00)
--- NOTE | 2017-02-17 08:24 | RAD ---
TWO VIEWS OF CHEST: Date: 02-17-17 Comparison: 02-15-17 History: Pneumonia, CHF. FINDINGS: There is extensive interstitial and alveolar opacity throughout the right lung, similar when compared to 02-15-17. There is elevation of right hemidiaphragm. Blunting of both costophrenic angles suggest s small bilateral pleural effusions. Cardiac silhouette is prominent. Midline sternotomy wires and me diastinal clips are noted. No pneumothorax. Stable increased linear interstitial density noted in lef t lung base. IMPRESSION: Stable appearance of the chest. Interstitial and alveolar opacities seen bilaterally, right greater t diaz left, with small bilateral pleural effusions. Findings may be on the basis of pulmonary edema and /or infectious pneumonitis. POS: [facility]
--- NOTE | 2017-02-17 08:29 | PDOC.FM ---
- Subjective Subjective: Pt doing fine this morning. Denies any acute events overnight. Denies any SOB or Chest pain. Has been getting up and moving around fine. Pt denies any other problems at this time. - Objective MAR Reviewed: Yes Vital Signs & Weight: Vital Signs (12 hours) Temp Pulse Resp BP BP Pulse Ox 02/17/17 07:49 97.6 F 73 20 90 L 02/17/17 04:00 97.6 F 73 20 101/60 92 L 02/17/17 01:21 63 18 93 L 02/17/17 00:28 90 L 02/16/17 20:31 97.6 F 80 18 123/61 93 L 02/16/17 20:30 97.6 F 80 18 93 L Weight Admit Weight 120.338 kg Weight 109.372 kg I&O: 02/16/17 02/17/17 02/18/17 06:59 06:59 06:59 Intake Total 940 2060 Output Total 1340 3000 Balance -400 -940 Result Diagrams: 02/17/17 04:20 02/17/17 05:27 Radiology Reviewed by me: Yes Radiology: 02/17 CXRay: stable appearance of the chest. Interstitial and alveolar opacities seen bilaterally, R. greater than left, w/ small bilateral pleural effusions. Findings may be on the basis of pulmonary edema and/or infectious pneumonitis <Ray Cabrera - Last Filed: 02/17/17 08:37> - Objective Vital Signs & Weight: Vital Signs (12 hours) Temp Pulse Pulse Pulse Resp BP BP 02/17/17 14:27 85 18 02/17/17 12:00 97.0 F L 80 18 02/17/17 11:33 86 81 125/63 02/17/17 08:55 80 124/60 02/17/17 08:54 124/60 02/17/17 08:51 97.5 F L 80 18 02/17/17 08:25 79 16 02/17/17 07:49 97.6 F 73 20 02/17/17 04:00 97.6 F 73 20 BP BP BP Pulse Ox Pulse Ox Pulse Ox 02/17/17 14:27 95 02/17/17 12:00 125/63 92 L 02/17/17 11:33 107/60 90 L 92 L 02/17/17 08:55 02/17/17 08:54 02/17/17 08:51 124/60 90 L 02/17/17 08:25 02/17/17 07:49 90 L 02/17/17 04:00 101/60 92 L Weight Admit Weight 120.338 kg Weight 109.372 kg I&O: 02/16/17 02/17/17 02/18/17 06:59 06:59 06:59 Intake Total 940 2060 Output Total 1340 3000 Balance -400 -940 Result Diagrams: 02/17/17 04:20 02/17/17 05:27 <Emmanuel Winter - Last Filed: 02/17/17 15:26> Phys Exam - Physical Examination HEENT: moist MMs, oral pharynx no lesions Neck: no nodes, supple, full ROM JVD to jaw noted Respiratory: no wheezing Lung sounds decreased at bases R. more than left. Crackles noted Cardiovascular: no significant murmur, no rub, irregular Gastrointestinal: soft, non-tender, no distention, positive bowel sounds mild edema in LE bilaterally, mild pitting noted. Improved from yesterday Neurological: non-focal, normal sensation, moves all 4 limbs <DeborahRay - Last Filed: 02/17/17 08:37> Dx/Plan (1) Heart failure Code(s): I50.9 - HEART FAILURE, UNSPECIFIED Status: Acute QualifierTitle: Heart failure type: unspecified heart failure type Heart failure chronicity: acute Qualified Code(s): I50.9 - Heart failure, unspecified Plan: -ECHO: EF 25-30%. Inferior wall akinetic. R and L ventricles dilated -On IV lasix BID -Started on Lisinopril. -Cardiology consulted-Dr. Crain, will continue to follow recommendations -s/p Heart cath two days ago. Nothing significant per results. Awaiting lifevest this time -Switched metoprolol to carvedilol, dose currently at 12.5. Dropped down from 25 as BP was low. -Strict I/Os and daily weights for monitoring. Heart Healthy diet -Dietary and Heart Failure team consulted for counseling on disease management -Ready for Discharge today. Will await recs from Dr. Crain -02/13 CXR shows worsening opacity from previous study. Bicarb slowly increasing the last few days. -Xray reads pneumonia, pt has been afebrile, no increased white count other than one day. Got two doses of abx before admission. Will continue to monitor for now -02/17 CXR: improved when compared to 02/15,02/13 CXR. Shows interstitial and alveolar opacities bilaterally, R. greater than left w/ small bilateral pleural effusions. On Lasix BID. Urine output adequate. Denies an SOB. (2) Paroxysmal atrial fibrillation Code(s): I48.0 - PAROXYSMAL ATRIAL FIBRILLATION Status: Acute Plan: -hx of a.fib -In a. fib at this time. -Rate controlled at this time. -On tele monitor -Cardiology consulted- Dr. Crain -Will be placed on lean sensei anticoagulation. Hopefully can use newer anticoagulants. will start today per Dr. Crain (3) Nonsustained ventricular tachycardia Code(s): I47.2 - VENTRICULAR TACHYCARDIA Status: Acute Plan: Nonsustained. Had about 10 beats of ventricular tachycardia a few days ago. Non noted as of late. -On tele monitor. Will continue to observe. -Regular rhythm this morning -Dr. Crain consulted and following (4) History of coronary artery bypass surgery Status: Acute Plan: -history of 2 CABGs in the past -s/p heart cath by Dr. Crain two days ago. -Awaiting life vest -Continue home meds -Troponins in indeterminate range, trended down. (5) HTN (hypertension) Code(s): I10 - ESSENTIAL (PRIMARY) HYPERTENSION Status: Acute Plan: -Started on lisinopril. Metoprolol switched to Carvedilol. Decreased carvedilol dose from 25 to 12.5 mg BID due to low BP -Decreased lisinopril from 5 to 2.5 mg. (6) Non-alcoholic fatty liver disease Status: Chronic Plan: [facility] -Will await records. -Bili stable -AST/ALT have trended into normal range. Likely due to some heart failure congestion on top of NAFLD (7) Transaminitis Code(s): R74.0 - NONSPEC ELEV OF LEVELS OF TRANSAMNS & LACTIC ACID DEHYDRGNSE Status: Acute Plan: -Hepatitis panel negative -Likely due to NAFLD and congestion from heart failure -Will continue to follow with CMPs at this time -[facility] and [facility] as patient states has recently been worked up a few months ago (8) HLD (hyperlipidemia) Code(s): E78.5 - HYPERLIPIDEMIA, UNSPECIFIED Status: Acute Plan: -continue home meds (9) Hyperbilirubinemia Code(s): E80.6 - OTHER DISORDERS OF BILIRUBIN METABOLISM Status: Acute Plan: -Bili stable -Likely due to NAFLD and congestion from heart failure -No abdominal pain -Awaiting outside records (10) COPD exacerbation Code(s): J44.1 - CHRONIC OBSTRUCTIVE PULMONARY DISEASE W (ACUTE) EXACERBATION Status: Acute Plan: COPD Excacerbation -Xray improved today from two days ago Dr. Zheng with Pulmonology has been consulted will follow recs -Started on Levaquin, Duonebs and Prednisone. will continue for 5 more days on discharge -No fevers or chills overnight. -Procalcitonin negative. S. pneumo and legionella ag negative -Still requiring 2 L O2 overnight. May need lean sensei O2. -Will assess need for home O2 and get set up. <Ray Cabrera - Last Filed: 02/17/17 08:37> Attending Addendum - Attending Addendum I personally evaluated the patient and discussed the management with Dr. Cabrera. I agree with the History, Examination, Assessment and Plan documented above with any addition or exceptions noted below. Patient doing well today. Denies shortness of breath even though sats off O2 show low 80s. He has been cleared from cardiology standpoint for discharge, and has his Lifevest on at this time. He is also cleared for discharge from Pulm standpoint, though he does need continuous oxygen at this time. This has been arranged for the short term until he can see [place] doctor for shelter approval. He also has approval for OAC per Cardiology recs. He is feeling well and ready to go home. Will discharge home today. <Emmanuel Winter - Last Filed: 02/17/17 15:26>
[2017-02-17] MEDS: Carvedilol 6.25 MG TAB PO SCH ×2 (08:54→15:58)
[2017-02-17] MEDS: Furosemide 40 MG TAB PO SCH ×2 (08:54→15:24)
[2017-02-17] MEDS: Digoxin 0.125 MG TAB PO SCH (08:55)
[2017-02-17] MEDS ORDERED: Lisinopril 2.5 MG TAB PO SCH (09:00)
--- NOTE | 2017-02-17 11:10 | PRG ---
DATE OF SERVICE: 02/17/2017 SUBJECTIVE: Mr. Mullins is doing better and he feels well. OBJECTIVE: VITAL SIGNS: Blood pressure is in the 100/60 systolic range. Pulse is 80. The blood bank laboratory technician said that he had about a 2-second pause, asymptomatic. LUNGS: No wheezing, rales or rhonchi. CARDIAC: Irregular, irregular. ABDOMEN: Soft, nontender. EXTREMITIES: There is still moderate edema. ASSESSMENT: 1. Congestive heart failure, systolic, acute on chronic, improved. 2. Coronary artery disease, previous bypass, only graft patent in the internal mammary. Medical the rapy is an appropriate option. 3. Statin therapy being continued. 4. Hypercholesterolemia. PLAN: 1. He will go on Xarelto 20 mg a day. New medicine and will start tomorrow. 2. Continue aspirin 81 mg a day. 3. Potassium 10 mEq twice a day. 4. Furosemide 40 mg twice a day. 5. Carvedilol 12.5 mg twice a day. 6. Continue statin. 7. Go home with a LifeVest. That was arranged for yesterday, we were reviewing the teaching with ninfa aleman on this. He still has ejection fraction below 35% on 3 months defibrillator implantation.
--- NOTE | 2017-02-17 13:41 | PRG ---
DATE OF SERVICE: 02/17/2017 SUBJECTIVE: A 67-year-old gentleman, his x-ray shows rather impressive right-sided infiltrate. OBJECTIVE: VITAL SIGNS: His oxygen saturation is low, less than 90%, pulse 80, respiratory rate of 18. CHEST: Chest reveals decreased breath sounds, no wheezing. CARDIAC: Normal S1, S2. No gallops. ABDOMEN: Soft, no masses. IMPRESSION: Hypoxemia, respiratory failure, pneumonia superimposed and congestive heart failure. PLAN: He will be discharged home on Prednisone tapered and antibiotics. He will be seen in the [facility] in 2 weeks for the chest x-ray.
[2017-02-17 16:29] VITALS: BP 115/59; TEMP 98.4
[2017-02-17] MEDS ORDERED: Rivaroxaban 10 MG TAB PO SCH (18:00)
[2017-02-18] MEDS ORDERED: predniSONE 20 MG TAB PO SCH (08:00)
--- NOTE | 2017-02-18 14:11 | DIS-2 ---
DATE OF DISCHARGE: 02/17/2017 ADMITTING ATTENDING: Dr. Olman Henderson DISCHARGE ATTENDING: Dr. Emmanuel Winter RESIDENT: Ray Cabrera M.D. - PGY1. CONSULTATIONS: Dr. Crain with Cardiology and Dr. Zheng with Pulmonology. PROCEDURES: He had an echocardiogram done on 02/09/2017 which showed left ventricular size moderately increased, ejection fraction of 25-30%, inferior wall akinetic moderately enlarged right ventricle cavity, left atrium severely dilated, moderately enlarged right atrium size, moderate mitral regurg present, calcified aortic valve, no significant stenosis or regurg, moderate to severe tricuspid regurg and moderately elevated pulmonary artery pressure. He also had a heart catheterization done on the . IMAGING: On 02/09/2017 he had a chest x-ray which showed: 1. Impression for decompensated congestive heart failure. 2. Airspace opacity in right midlung and right lower lobe may reflect pneumonia or possible airspace edema. Continued follow up recommended. He got a chest x-ray on 02/13/2017 which showed worsening confluent opacity throughout the entire right lung, evidence for right lung pneumonia, bilateral vascular congestion with some linear change in the left base and costophrenic angle, probably related to necrosis and congestive heart failure. The right chest has become more opaque from the prior study of 02/09/2017. Continue short term followup. A repeat chest x-ray on 02/15/2017 which showed there is minimal improvement in the aeration of the right lung compared to previous study. Exam is otherwise stable. He got another chest x-ray on 02/17/2017 which showed stable appearance of the chest and a central and alveolar opacity seen bilaterally, right greater than left, with small bilateral pleural effusion. Findings may be on the basis of pulmonary edema and/or infectious pneumonitis. PRIMARY DIAGNOSES 1. New onset heart failure with ejection fraction of 25-30%. 2. Paroxysmal atrial fibrillation. 3. An episode of nonsustained ventricular tachycardia. 4. He had a mild chronic obstructive pulmonary disease exacerbation. SECONDARY DIAGNOSES 1. History of coronary artery disease status post 2 bypass surgeries. 2. History of hypertension. 3. Nonalcoholic fatty liver disease. 4. Transaminitis. 5. Hyperlipidemia. 6. Hyperbilirubinemia. DISCHARGE MEDICATIONS: Carvedilol 12.5 mg p.o. b.i.d., digoxin 0.125 mg p.o. daily, furosemide 40 mg p.o. b.i.d., Levaquin 500 mg p.o. for 5 days, lisinopril 2.5 mg p.o. daily, prednisone 40 mg p.o. for 5 more days, Xarelto 20 mg p.o. daily, albuterol, Proventil HFA 2 puffs q.12h., aspirin 81 mg, hydrocodone 10 mg/325 mg tab 2 tabs p.o. at bedtime, hydroxyzine 10 mg p.o. at bedtime. Ipratropium bromide 2 sprays each naris daily, omeprazole 20 mg p.o. at bedtime, potassium chloride 20 mEq p.o. p.r.n., sertraline 100 mg p.o. q.a.m. , simvastatin 80 mg p.o. at bedtime. Tizanidine 4 mg p.o. at bedtime and Zolpidem tartrate 2 mg tablet. DISCONTINUED MEDICATIONS: Metoprolol and hydralazine. HISTORY OF PRESENT ILLNESS/BRIEF HOSPITAL COURSE: This is a 57-year-old male that came in with a 4 week history of shortness of breath in which he had been treated for upper respiratory infections and treated with 2 courses of antibiotics, azithromycin 1 week and Levaquin 1 week. He said that the shortness of breath was happening when he walked more than 50 feet. He said he had to prop himself on the pillows. He said he was in physical therapy and O2 sats were in 83-84%. He came in at this time and was found to have +2 pitting edema in his legs. Lungs had decreased breath sounds and were crackly bilaterally. At this time, we checked his labs, his white blood cell count was normal. We checked a venous blood gas, pH 7.4, pCO2 of 49.3, HCO3 of 32. His chest x-ray showed decompensated heart failure, cardiomegaly with pulmonary vascular congestion. His BNP was 388.4. We got a set of troponins on the day of admission, troponins were 0.06, trended down to 0.04 and the third one would trend to 0.065 trended to 0.06 and trended to 0.044. During this time, it looked like he had what looked like a new onset heart failure. He denied any history of ever being told he had heart failure. He did have a history of multiple CABGs. He did say he had gotten an echo 3 months ago and that it was normal. He goes to the [place], so we got a TTE on him on the day of admission. We consulted Cardiology, Dr. Crain made him n.p.o. just in case they wanted to do any studies, this was on the and at this time we got the echo results and showed an ejection fraction of 25-30%. During this time, we kept him on his metoprolol and hydralazine. He had been started on Lasix 20 mEq to get some of the fluid off of him as he had the pitting edema. During this time, too, he had some elevated transaminases. His AST was 64 and his direct bilirubin was 2.4 and his total bilirubin was 2.9, yet, he had told us that he had a history of nonalcoholic fatty liver disease and that he had had a history of nonalcoholic fatty liver disease. At this time we thought likely that we would [facility] and once we found out it was heart failure we contributed that his transaminases and elevated bilirubin were likely due to congestion from his severe heart failure status, so during this time we consulted Dr. Crain who changed his blood pressure medication for metoprolol to carvedilol. We switched him onto lisinopril 5 mg. We increased his diuretic therapy from IV 40 mEq to b.i.d. and we continued him on the tele monitor. Dr. Crain wanted to diurese him for a few days. This was on the and planned to diurese him on the so for the next few days we continued him on diuresis and continued to monitor. His swelling had continued to improve for the first day, he still had +2 pitting edema, but overall his swelling was looking better. The patient never did complain of chest pain or shortness of breath. During that second day on the , his white blood cell count bumped up to 14.2. He had been treated previously twice with azithromycin , Levaquin for possible infections. The chest x-ray on admission did read possible pneumonia, but he never did spike a fever, never complained of shortness of breath so at this time since he had already gotten treated with antibiotics we decided we would continue to follow CBC and then on the , his CBC would trend down into the normal range again, never having any fevers at this time. We continued management for heart failure with the Lasix. Also during this time in these first few days he did switch over back into atrial fibrillation. He was mainly rate controlled. Per Dr. Crain, on the he decided he wanted to diurese him more and wait until the , Wednesday to do the heart catheterization as he wanted to just continue to make sure the patient was more stable. During the day of the , his heart rate kind of bumped up, he was still in atrial fibrillation, so we increased his dose of carvedilol from 12.5 to 25 mg b.i.d. and continued to monitor. We got the repeat x-ray on the which showed maybe pneumonia, but the patient again was afebrile. We decided not to treat him at this time for pneumonia and more like CHF. During this time, too, back on the , he had some nonsustained ventricular tachycardia about [address] Crain was followed and continued to watch with his atrial fibrillation. During this time, blood pressure would get high when he was switched to carvedilol and lisinopril, so we bumped him up to 5 mg and 12.5 mg before the , but then on the , his blood pressure began to drop in the 90s-100s, so we decided to cut back the blood pressure medications back to 12.5 to 2.5 and that is where his blood pressure would stay stable and what dose we would discharge him on. We will continue to diurese him. He did get better, never complained of shortness of breath. On the , he got a heart catheterization. Dr. Crain consulted Dr. Zheng because the chest x-ray just did not look very good. Dr. Zheng thought maybe he had a little chronic obstructive pulmonary disease exacerbation, started him on Levaquin, prednisone , and he is already on DuoNebs. We continued to monitor. He continued to improve. Dr. Crain wanted him to get set up with a LifeVest and we had to wait for that for the next few days. Also, during this time, during the whole visit, he stayed on oxygen about 2 liters around 90-94%. We could never wean him off so at this time it was decided with his chest x-ray, per Dr. Zheng on the that he needed to be set up with home oxygen. We assessed him for home oxygen. He did need oxygen, so when he tried the oxygen he would drop down to 82-83%. We got him set up with home oxygen and told him he needed [facility] for now as we are still diuresing his lungs. On the , his chest x-ray did look a little bit better. Also back somewhere in there during the visit Dr. Crain also started him on digoxin for his heart failure as well, so starting on the , we got him set up with home oxygen. He had an appointment to follow up with his primary care doctor the next day. At this time, we decided it was stable for him, he was rate controlled in atrial fibrillation. His blood pressures were stable. He was breathing fine, had no complaints, no fevers and he was discharged home on the . DISPOSITION: His outlook is guarded. DISCHARGE INSTRUCTIONS: 1. Location: Home. 2. Diet: His diet is heart healthy. 3. Activity: His activity is activity as tolerated. 4. Followup: He will follow up with his primary care doctor the next day to get set up with home oxygen. CHIKA
[2017-02-18] MEDS ORDERED: Rivaroxaban 10 MG TAB PO SCH (18:00)
--- NOTE | 2017-02-21 14:28 | EKG ---
Test Reason : RHYTYM CHANGE Blood Pressure : / mmHG Vent. Rate : 086 BPM Atrial Rate : 086 BPM P-R Int : 000 ms QRS Dur : 112 ms QT Int : 412 ms P-R-T Axes : 000 021 250 degrees QTc Int : 493 ms Atrial fibrillation with frequent multiformed ventricular premature or aberrantly conducted beats Possible Inferior infarct (cited on or before 04-APR-2002) Abnormal ECG When compared with ECG of 16-NOV-2016 14:11, Current undetermined rhythm precludes rhythm comparison, needs review Confirmed by ARLINE CHANEY ([id number]) on 02/21/2017 2:28:37 PM Referred By: KI Confirmed By:ARLINE CHANEY
--- NOTE | 2017-04-03 11:34 | EKG ---
Test Reason : Blood Pressure : / mmHG Vent. Rate : 082 BPM Atrial Rate : 083 BPM P-R Int : 000 ms QRS Dur : 102 ms QT Int : 360 ms P-R-T Axes : 000 008 248 degrees QTc Int : 420 ms Undetermined rhythm Possible Inferior infarct , age undetermined No STEMI Abnormal ECG Confirmed by LEIGH RICHARD M.D. ([id number]), international editorial producer STEPHANIE VITAL ([id number]) on 04/03/2017 11:33:40 AM Referred By: Confirmed By:LEIGH RICHARD M.D.
== END 2017-02-17 16:29 | disposition home or self-care (01) | DRG 286 ==
LOC: SCSER 16:10 → 2NO 18:55
PROVIDERS: ADMIT Family Medicine; ATTEND Family Medicine
PROC: 4A023N7 Measurement of Cardiac Sampling and Pressure, Left Heart, Percutaneous Approach (ICD-10-PCS; principal; 2017-02-15)
PROC: B2111ZZ Fluoroscopy of Multiple Coronary Arteries using Low Osmolar Contrast (ICD-10-PCS; 2017-02-15)
PROC: B2151ZZ Fluoroscopy of Left Heart using Low Osmolar Contrast (ICD-10-PCS; 2017-02-15)
PROC: B2131ZZ Fluoroscopy of Multiple Coronary Artery Bypass Grafts using Low Osmolar Contrast (ICD-10-PCS; 2017-02-15)
DX: I11.0 Hypertensive heart disease with heart failure (principal); J96.01 Acute respiratory failure with hypoxia; I47.2 Ventricular tachycardia; J18.9 Pneumonia, unspecified organism; I48.0 Paroxysmal atrial fibrillation; K76.0 Fatty (change of) liver, not elsewhere classified; J44.1 Chronic obstructive pulmonary disease with (acute) exacerbation; I50.23 Acute on chronic systolic (congestive) heart failure; I25.10 Atherosclerotic heart disease of native coronary artery without angina pectoris; F43.10 Post-traumatic stress disorder, unspecified; F41.9 Anxiety disorder, unspecified; Z95.1 Presence of aortocoronary bypass graft; Z88.1 Allergy status to other antibiotic agents; Z79.82 Long term (current) use of aspirin; Z87.891 Personal history of nicotine dependence; R74.0 Nonspecific elevation of levels of transaminase and lactic acid dehydrogenase [LDH]; E80.6 Other disorders of bilirubin metabolism; I25.5 Ischemic cardiomyopathy; E78.00 Pure hypercholesterolemia, unspecified; I73.9 Peripheral vascular disease, unspecified; I87.8 Other specified disorders of veins; E66.9 Obesity, unspecified; Z68.38 Body mass index [BMI] 38.0-38.9, adult
CPT/HCPCS: 36415; 71010; 71020; 76942; 80048; 80053; 80061; 81003; 82248; 82553; 82805; 83735; 83880; 84100; 84145; 84443; 84484; 85025; 85610; 86704; 86706; 86803; 87040; 87086; 87340; 87389; 87899; 93005; 93010; 93306; 93459; 93567; 93798; 94640; 96361; 96374; 96375; 99152; 99153; A4216; J1160; J1644; J1650; J1940; J2250; J2405; J2930; J3010; J7506; J7620

== ENCOUNTER 2017-11-01 16:09 | Emergency (ER) | payer OTHER | END 2017-11-01 16:59 | disposition home or self-care (01) | LOC: SCSER 16:09 | DX: M25.462 Effusion, left knee (principal); I48.91 Unspecified atrial fibrillation; E78.5 Hyperlipidemia, unspecified; I10 Essential (primary) hypertension; J44.9 Chronic obstructive pulmonary disease, unspecified; Z79.899 Other long term (current) drug therapy; Z87.891 Personal history of nicotine dependence | CPT/HCPCS: 99283 ==

== ENCOUNTER 2017-12-14 16:50 | Inpatient (IN) | payer MEDICARE, SELFPAY ==
[2017-12-14 17:32] VITALS: BMI 33.3
[2017-12-14] MEDS ORDERED: Prevnar 13-Val Conj/PF 0.5 ML SYRINGE IM ONE (18:15)
--- NOTE | 2017-12-14 18:32 | RAD ---
SINGLE VIEW OF THE CHEST: 12/14/17 COMPARISON: 01/08/07, 02/17/17. HISTORY: CHF. FINDINGS: Single view of the chest shows an enlarged but stable cardiomediastinal silhouette. The patient is st atus post CABG. There is a left subclavian pacemaker with its leads in the right atrium and right katerine tricle. There is no evidence of consolidation or mass. There may be a small left pleural effusion. IMPRESSION: Stable cardiomegaly. POS: [facility]
[2017-12-14] MEDS ORDERED: Acetaminophen/Codeine 30-300mg Tablet PO PRN ×2 (19:20)
[2017-12-14] MEDS ORDERED: PROVENTIL INHALER 6.7 G (200 INHALATIONS) INH PRN (19:21)
[2017-12-14] MEDS ORDERED: Furosemide 40 MG/4 ML VIAL SLOW IVP SCH (19:30)
[2017-12-14] MEDS ORDERED: Sodium Chloride 0.9% 10 ML ONE (20:00)
[2017-12-14] MEDS: Simvastatin 40 MG TAB PO SCH (20:54)
[2017-12-14] MEDS ORDERED: Sotalol HCl 80 MG TAB PO SCH (21:00)
[2017-12-14] MEDS: hydrOXYzine 10 MG TAB PO SCH (21:02)
[2017-12-14] MEDS: tiZANidine HCl 4 MG TAB PO SCH (21:02)
[2017-12-14] MEDS: Sotalol HCl 80 MG TAB PO SCH (21:02)
[2017-12-14] MEDS: hydrALAZINE 10 MG TAB PO SCH (21:03)
[2017-12-14] MEDS ORDERED: traMADol HCl 50 MG TAB PO PRN (21:14)
[2017-12-14] MEDS ORDERED: Zolpidem Tartrate 5 MG TAB PO SCH (21:15)
[2017-12-14] MEDS: HYDROcodone/Acetaminophen 10/325 mg Tablet PO PRN (22:36)
[2017-12-15] MEDS ORDERED: Clindamycin/D5W 900 MG in Premix Bag 1 BAG IVPB SCH (06:00)
[2017-12-15 06:19] LABS: Hemoglobin 13.1 g/dL (14.0-18.0); Mean Corpuscular HGB CONC 34.2 g/dL (32.0-36.0); Mean Corpuscular Hemoglobin 32.5 pg (27.0-31.0); Mean Corpuscular Volume 94.8 fL (78.0-98.0); Mean Platelet Volume 8.6 fL (7.4-10.4); Platelet Count 136 thou/uL (130-400); RBC Distribution Width 13.3 % (11.5-14.5); Red Blood Cell (RBC) Count 4.05 mill/uL (4.70-6.10); White Blood Cell (WBC) Count 6.5 thou/uL (4.8-10.8)
[2017-12-15 06:26] LABS: INR-International Normal Ratio 1.2; Prothrombin Time 15.3 SEC (12.0-14.7)
[2017-12-15 06:43] LABS: Anion Gap 13 mmol/L (10-20); BUN (Urea Nitrogen) 18 mg/dL (8.4-25.7); Calc. Creatinine Clearance 114 mL/min (70-130); Calcium 9.2 mg/dL (7.8-10.44); Carbon Dioxide 27 mmol/L (23-31); Chloride 102 mmol/L (98-107); Estimated GFR-MDRD 81; Glucose 82 mg/dL (80-115); Potassium 3.8 mmol/L (3.5-5.1); Sodium 138 mmol/L (136-145)
[2017-12-15] MEDS ORDERED: Carvedilol 6.25 MG TAB PO SCH (08:00)
[2017-12-15] MEDS: hydrALAZINE 10 MG TAB PO SCH ×3 (08:44→21:18)
[2017-12-15] MEDS: Lisinopril 5 MG TAB PO SCH (08:44)
[2017-12-15] MEDS ORDERED: Digoxin 0.125 MG TAB PO SCH (09:00)
[2017-12-15] MEDS ORDERED: Rivaroxaban 10 MG TAB PO SCH (09:00)
[2017-12-15] MEDS ORDERED: Furosemide 40 MG/4 ML VIAL SLOW IVP SCH (09:15)
[2017-12-15] MEDS ORDERED: Potassium Chloride 20 MEQ TAB PO SCH (09:15)
[2017-12-15] MEDS: Aspirin 81 mg Enteric Coated Tablet PO SCH (10:10)
[2017-12-15] MEDS: Potassium Chloride 10 MEQ TAB PO SCH (10:11)
[2017-12-15] MEDS: Furosemide 40 MG TAB PO SCH ×2 (10:11→13:08)
[2017-12-15] MEDS: Sotalol HCl 80 MG TAB PO SCH ×4 (10:11→21:19)
[2017-12-15] MEDS: Ipratropium Bromide 0.06% Nasal Inhaler 15ml EA NARE SCH (10:12)
[2017-12-15] MEDS ORDERED: Lidocaine 1% (PF) 30 ML VIAL ONE (13:37)
[2017-12-15] MEDS ORDERED: Fentanyl 100 MCG/2 ML VIAL ONE (14:04)
[2017-12-15] MEDS ORDERED: Propofol 500 MG/50 ML VIAL ONE (14:11)
[2017-12-15] MEDS ORDERED: Midazolam HCl 2 mg/2 ml Vial ONE (14:56)
[2017-12-15] MEDS ORDERED: Clindamycin/D5W 600 mg/50 ml Premix Bag ONE (15:09)
[2017-12-15] MEDS ORDERED: Ondansetron HCl/PF 4 MG/2 ML Vial IVP PRN (16:11)
[2017-12-15] MEDS ORDERED: Promethazine HCl 25 MG/ML VIAL SLOW IVP PRN (16:11)
--- NOTE | 2017-12-15 17:21 | RAD ---
ONE VIEW CHEST: 12/15/17 COMPARISON: 02/15/17. HISTORY: Status post defibrillator upgrade. FINDINGS: Portable single view chest demonstrates a left sided defibrillator with lead position over the right atrium, right ventricle and coronary sinus. There is no pneumothorax. Pulmonary vessels are prominent . Heart is enlarged. Sternotomy wires are noted. There appears to be a prostatic heart valve. Small l eft sided pleural effusion. No pneumothorax. There is diffuse bone demineralization. IMPRESSION: 1. Cardiomegaly. Congestive heart failure. 2. Left sided defibrillator. No pneumothorax. POS: [facility]
[2017-12-15] MEDS ORDERED: Zolpidem Tartrate 5 MG TAB PO SCH (21:00)
[2017-12-15] MEDS: tiZANidine HCl 4 MG TAB PO SCH (21:17)
[2017-12-15] MEDS: hydrOXYzine 10 MG TAB PO SCH (21:18)
[2017-12-15] MEDS: Clindamycin 150 MG CAP PO SCH (21:18)
[2017-12-15] MEDS: Simvastatin 40 MG TAB PO SCH (21:19)
[2017-12-15] MEDS: HYDROcodone/Acetaminophen 10/325 mg Tablet PO PRN (21:20)
[2017-12-16] MEDS: HYDROcodone/Acetaminophen 10/325 mg Tablet PO PRN (02:45)
[2017-12-16 07:53] VITALS: TEMP 98.4
[2017-12-16] MEDS ORDERED: Sotalol HCl 80 MG TAB PO SCH (09:00)
[2017-12-16] MEDS: hydrALAZINE 10 MG TAB PO SCH ×2 (09:12→13:26)
[2017-12-16] MEDS: Potassium Chloride 10 MEQ TAB PO SCH (09:12)
[2017-12-16] MEDS: Aspirin 81 mg Enteric Coated Tablet PO SCH (09:12)
[2017-12-16] MEDS: Lisinopril 5 MG TAB PO SCH (09:12)
[2017-12-16] MEDS: Clindamycin 150 MG CAP PO SCH ×2 (09:12→13:25)
[2017-12-16] MEDS: Furosemide 40 MG TAB PO SCH ×2 (09:12→13:25)
[2017-12-16] MEDS: Sotalol HCl 80 MG TAB PO SCH (09:13)
[2017-12-16] MEDS: Ipratropium Bromide 0.06% Nasal Inhaler 15ml EA NARE SCH (09:15)
--- NOTE | 2017-12-16 14:00 | PDOC.CTH ---
Cardiology Progress Note - Subjective EP progress note: Patient seen and evaluated. No new cardiac concerns or complaints today. Denies heart racing, palpitations, chest pain/pressure, dizziness, or passing out. No stroke like symptoms. - Objective Vital Signs Temp Pulse Resp BP BP Pulse Ox 12/16/17 13:26 77 12/16/17 13:21 98.4 F 77 16 127/67 93 L 12/16/17 08:00 96 12/16/17 07:49 98.4 F 60 15 112/62 96 12/16/17 03:38 97.5 F L 60 15 106/61 92 L Weight 217 lb 8 oz 12/15/17 12/16/17 12/17/17 06:59 06:59 06:59 Intake Total 574 720 Output Total 5987 6336 Balance -6935 -8777 - Physical Examination General/Neuro: alert & oriented x3, NAD Neck: carotid US brisk, no JVD present Lungs: CTA, unlabored respirations Heart: PMI normal, RRR Abdomen: no HSM, NT/ND Other PE findings: Incision CDI - Telemetry Telemetry Rhythm: NSR, QTc 398 - Labs Result Diagrams: 12/15/17 05:34 12/15/17 05:34 - Assessment/Plan 1. 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 Now in NSR, no VT on tele 2. Sotalol loading completed. QTc 398 ms on 12lead today. Stable on sotalol 3. Upgrade to BiV ICD this hospitalization. Site stable. OK for DC by EP. Continue Sotalol 160mg BID and clindamycin 300mg PO TID x 7 days. 10-14 day wound check with [facility] in [place] will be arranged. Continue Xarelto.
[2017-12-16 14:37] VITALS: BP 110/59
--- NOTE | 2017-12-16 15:56 | PDISCHARGE ---
Discharge - Disposition Disposition: HOME - Ambulatory Orders Prescriptions: Clindamycin [Cleocin] 300 mg PO TID #21 cap Sotalol HCl [Betapace] 160 mg PO BID #60 tab - Patient Instructions Pre-Printed Education: Ventricular Arrhythmia, Implantable Cardioverter Defibrillator (ICD), Discharge Instructions for Heart Failure Additional Instructions: FOCUS: Transition from Acute Care after Discharge GOAL: Successful transition to care in the community YOUR TASKS: (1) review all information outlined in your discharge packet (2) follow any instructions outlined in your discharge packet (3) contact your primary care provider if you have questions or need additional assistance See patient discharge instruction sheet for detailed teaching. Patient verbalizes understanding of medications and is able to verbalize follow-up care. See Discharge Plan for additional discharge information. Patient secured in private vehicle prior to departure. Care Plan Goals: 0 TAKE CONTROL OF HEART FAILURE 0 Together we can! o Weigh yourself daily every morning after going to the bathroom. Call your health care provider if you gain 2 pounds in a day or 5 pounds in a week. Use the daily log provided to record your weight. o Eat no more than 2 grams (2000mg) sodium (salt) a day. Read food labels and throw away the salt shaker! o Your personal fluid limit: Only if instructed by a provider o Take your Medications as prescribed. Do not skip doses. If you can't afford your medications, please let your doctor know. o Watch for worsening heart failure symptoms such as increased swelling or increased shortness of breath with activity or at rest. o Follow-up with your primary care provider within 1 week of discharge from the hospital. o Maintain activity as tolerated with frequent rest periods. o If you smoke - smoking puts stress on your heart. We can help you quit smoking, just ask. o Expect a follow up call in one to three days if you are being discharged to your home. Please go to heart.org/myhfguide to learn even more about managing your heart failure using the free interactive workbook. Addl Reference Text: DISCHARGE NOTE Patient seen and evaluated. No new cardiac concerns or complaints today. Denies heart racing, palpitations, chest pain/pressure, dizziness, or passing out. No stroke like symptoms. - Objective Vital Signs TempPulseRespBPBPPulse Ox 12/16/17 13:26 77 12/16/17 13:21 98.4 F 77 16 127/67 93 L 12/16/17 08:00 96 12/16/17 07:49 98.4 F 60 15 112/62 96 12/16/17 03:38 97.5 F L 60 15 106/61 92 L Weight 217 lb 8 oz 12/15/1808 [id number]:[id number] Intake [id number] Output [id number] - Physical Examination General/Neuro: alert & oriented x3, NAD Neck: carotid US brisk, no JVD present Lungs: CTA, unlabored respirations Heart: PMI normal, RRR Abdomen: no HSM, NT/ND Other PE findings: Incision CDI - Telemetry Telemetry Rhythm: NSR, QTc 398 - Labs Result Diagrams: 12/15/17 05:34 [Image 0] 12/15/17 05:34 [Image 1] - Assessment/Plan 1. 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 Now in NSR, no VT on tele 2. Sotalol loading completed. QTc 398 ms on 12lead today. Stable on sotalol 3. Upgrade to BiV ICD this hospitalization. Site stable. OK for DC by EP. Continue Sotalol 160mg BID and clindamycin 300mg PO TID x 7 days. 10-14 day wound check with [facility] in [place] will be arranged. Continue Xarelto. - Referrals and PCP Follow-Up Referrals and PCP Follow-Up: Melissa Beverly MD [Primary Care Provider] - 7 Days (FOLLOW UP WITH DR BEVERLY IN 7 DAYS, CALL FOR APPT) Kevin Dahl MD [Chief Lifestyle Officer] - 3-4 Weeks (FOLLOW UP WITH DR DAHL IN 3- 4WKS, CALL FOR APPT) Gray Crain MD [Active] - 14 Days (FOLLOW UP WITH DR CRAIN IN 7 DAYS FOR ICD CHECK, THEN IN 2 WKS FOR FOLLOW UP, CALL FOR APPT) - Activity Instructions Activity:: Cardiopulmonary Limits Additional Activity Instructions:: do not lift over 10 lb. do not lift left arm over head x 2 weeks.
--- NOTE | 2017-12-20 08:23 | EKG ---
Test Reason : TIMED Blood Pressure : / mmHG Vent. Rate : 061 BPM Atrial Rate : 061 BPM P-R Int : 262 ms QRS Dur : 110 ms QT Int : 442 ms P-R-T Axes : 012 -06 -56 degrees QTc Int : 444 ms Atrial-paced rhythm with prolonged AV conduction Incomplete right bundle branch block Inferior infarct (cited on or before 04-APR-2002) Abnormal ECG When compared with ECG of 10-FEB-2017 11:39, Previous ECG has undetermined rhythm, needs review T wave inversion more evident in Inferior leads T wave inversion more evident in Anterolateral leads Confirmed by DR. Katiy STRINGER ([id number]) on 12/20/2017 8:23:04 AM Referred By: HESHAM Confirmed By:DR. Kaity STRINGER
--- NOTE | 2017-12-20 08:25 | EKG ---
Test Reason : Blood Pressure : / mmHG Vent. Rate : 060 BPM Atrial Rate : 060 BPM P-R Int : 126 ms QRS Dur : 114 ms QT Int : 458 ms P-R-T Axes : 011 009 -55 degrees QTc Int : 458 ms Electronic atrial pacemaker Atrial paced ventricular sensed rhylthm Incomplete right bundle branch block Inferior infarct (cited on or before 04-APR-2002) Abnormal ECG When compared with ECG of 14-DEC-2017 20:57, (Unconfirmed) No significant change was found Confirmed by DR. Kaity STRINGER ([id number]) on 12/20/2017 8:24:50 AM Referred By: HESHAM Confirmed By:DR. Kaity STRINGER
--- NOTE | 2017-12-20 08:28 | EKG ---
Test Reason : Blood Pressure : / mmHG Vent. Rate : 063 BPM Atrial Rate : 063 BPM P-R Int : 000 ms QRS Dur : 174 ms QT Int : 518 ms P-R-T Axes : 000 -74 056 degrees QTc Int : 530 ms AV dual-paced rhythm with occasional Premature ventricular complexes Biventricular pacemaker detected Abnormal ECG When compared with ECG of 15-DEC-2017 07:27, (Unconfirmed) Electronic ventricular pacemaker has replaced Electronic atrial pacemaker Confirmed by DR. Kaity STRINGER ([id number]) on 12/20/2017 8:28:20 AM Referred By: HESHAM Confirmed By:DR. Kaity STRINGER
--- NOTE | 2017-12-20 08:29 | EKG ---
Test Reason : Blood Pressure : / mmHG Vent. Rate : 059 BPM Atrial Rate : 059 BPM P-R Int : 142 ms QRS Dur : 158 ms QT Int : 482 ms P-R-T Axes : 000 -57 058 degrees QTc Int : 477 ms AV sequential or dual chamber electronic pacemaker When compared with ECG of 15-DEC-2017 16:38, (Unconfirmed) Premature ventricular complexes are no longer Present Vent. rate has decreased BY [address] Kaity STRINGER ([id number]) on 12/20/2017 8:28:41 AM Referred By: [facility] Confirmed By:DR. Kaity STRINGER
--- NOTE | 2017-12-20 08:29 | EKG ---
Test Reason : Blood Pressure : / mmHG Vent. Rate : 062 BPM Atrial Rate : 062 BPM P-R Int : 000 ms QRS Dur : 168 ms QT Int : 500 ms P-R-T Axes : 000 -27 047 degrees QTc Int : 507 ms AV sequential or dual chamber electronic pacemaker When compared with ECG of 15-DEC-2017 16:38, (Unconfirmed) Premature ventricular complexes are no longer Present Confirmed by DR. Kaity STRINGER ([id number]) on 12/20/2017 8:29:23 AM Referred By: HESHAM Confirmed By:DR. Kaity STRINGER
--- NOTE | 2017-12-20 10:04 | EKG ---
Test Reason : 2 HR POST MED Blood Pressure : / mmHG Vent. Rate : 063 BPM Atrial Rate : 045 BPM P-R Int : 000 ms QRS Dur : 172 ms QT Int : 496 ms P-R-T Axes : 000 -37 058 degrees QTc Int : 507 ms AV sequential or dual chamber electronic pacemaker When compared with ECG of 16-DEC-2017 07:11, (Unconfirmed) No significant change was found Confirmed by DR. Kaity STRINGER ([id number]) on 12/20/2017 10:03:40 AM Referred By: [facility] Confirmed By:DR. Kaity STRINGER
--- NOTE | 2017-12-20 10:05 | EKG ---
Test Reason : BEFORE PACER SUSPENS Blood Pressure : / mmHG Vent. Rate : 060 BPM Atrial Rate : 060 BPM P-R Int : 122 ms QRS Dur : 110 ms QT Int : 460 ms P-R-T Axes : 011 -04 -87 degrees QTc Int : 460 ms Electronic atrial pacemaker Incomplete right bundle branch block Inferior infarct , age undetermined Abnormal ECG When compared with ECG of 16-DEC-2017 11:11, (Unconfirmed) Electronic atrial pacemaker has replaced Electronic ventricular pacemaker Confirmed by DR. Kaity STRINGER () on 12/20/2017 10:04:46 AM Referred By: HESHAM Confirmed By:DR. Kaity STRINGER
--- NOTE | 2017-12-20 10:05 | EKG ---
Test Reason : DURING SUSPENSION Blood Pressure : / mmHG Vent. Rate : 043 BPM Atrial Rate : 043 BPM P-R Int : 130 ms QRS Dur : 108 ms QT Int : 472 ms P-R-T Axes : 028 -03 -80 degrees QTc Int : 398 ms Marked sinus bradycardia Incomplete right bundle branch block Inferior infarct (cited on or before 16-DEC-2017) Abnormal ECG When compared with ECG of 16-DEC-2017 12:10, (Unconfirmed) Sinus rhythm has replaced Electronic atrial pacemaker QT has shortened Confirmed by DR. Kaity STRINGER ([id number]) on 12/20/2017 10:05:00 AM Referred By: HESHAM Confirmed By:DR. Kaity STRINGER
== END 2017-12-16 14:45 | disposition home or self-care (01) | DRG 227 ==
LOC: 2NO 16:50
PROVIDERS: ADMIT Internal Medicine Cardiovascular Disease; ATTEND Internal Medicine Cardiovascular Disease
PROC: 0JPT0PZ Removal of Cardiac Rhythm Related Device from Trunk Subcutaneous Tissue and Fascia, Open Approach (ICD-10-PCS; principal; 2017-12-15)
PROC: 0JH609Z Insertion of Cardiac Resynchronization Defibrillator Pulse Generator into Chest Subcutaneous Tissue and Fascia, Open Approach (ICD-10-PCS; 2017-12-15)
PROC: 02HL3KZ Insertion of Defibrillator Lead into Left Ventricle, Percutaneous Approach (ICD-10-PCS; 2017-12-15)
PROC: 02HK3KZ Insertion of Defibrillator Lead into Right Ventricle, Percutaneous Approach (ICD-10-PCS; 2017-12-15)
PROC: 02PA3MZ Removal of Cardiac Lead from Heart, Percutaneous Approach (ICD-10-PCS; 2017-12-15)
PROC: 02H73KZ Insertion of Defibrillator Lead into Left Atrium, Percutaneous Approach (ICD-10-PCS; 2017-12-15)
DX: I47.2 Ventricular tachycardia (principal); I50.22 Chronic systolic (congestive) heart failure; I25.5 Ischemic cardiomyopathy; I25.10 Atherosclerotic heart disease of native coronary artery without angina pectoris; I11.0 Hypertensive heart disease with heart failure; J44.9 Chronic obstructive pulmonary disease, unspecified; Z88.1 Allergy status to other antibiotic agents
CPT/HCPCS: 33224; 33263; 36005; 36415; 71045; 75820; 80048; 83880; 85027; 85610; 93005; 93010; 93798; A4216; C1882; C1900; J1940; J2001; J2250; J2704; J3010; J3490

== ENCOUNTER 2018-01-26 14:49 | Outpatient (CLI) | payer OTHER ==
[2018-01-26] MEDS ORDERED: Sodium Chloride 0.9% 15 ML NEB ONE (15:54)
--- NOTE | 2018-01-26 19:58 | HP ---
DATE OF SERVICE: 01/26/2018 HISTORY OF PRESENT ILLNESS: Mr. Tony Mullins is a very pleasant 67-year-old gentleman who presents to the [facility] for evaluation of a wound of the left upper anterior chest subsequent to biventr icular implantable cardioverter defibrillator upgrade in December of this year. The patient states that at the time of was upgrade, he was on Xarelto and developed a hematoma after the procedure. He states that the hematoma was expelled by Dr. Kevin meek on 01/18/2018. At this time, the arlin ent was referred to the Wound Center for further evaluation and treatment. The patient states that rosa elena zarate is presently taking clindamycin. PAST MEDICAL HISTORY: 1. Coronary artery disease. 2. Gastroesophageal reflux disease. 3. Hypertension. 4. Chronic back pain status post laminectomy. 5. History of paroxysmal atrial fibrillation. 6. Chronic obstructive pulmonary disease. 7. Nonalcoholic fatty liver disease. 8. History of congestive heart failure. PAST SURGICAL HISTORY: 1. Coronary artery bypass grafting followed by redo coronary artery bypass grafting. 2. ORIF of left first finger. 3. Appendectomy. 4. Tonsillectomy and adenoidectomy. 5. Left shoulder surgery. 6. Laminectomy. 7. Right knee surgery x2. 8. Varicocele repair. 9. Surgery for left carpal tunnel. MEDICATIONS: 1. Sotalol. 2. Lisinopril. 3. Digoxin. 4. Xarelto. 5. Lasix. 6. Aspirin 81 mg. 7. Potassium chloride. 8. Lipitor. 9. Zoloft. 10. Tizanidine. 11. Omeprazole. 12. Hydroxyzine. 13. Symbicort. 14. Clindamycin. ALLERGIES: KEFLEX. SOCIAL HISTORY: Negative for current tobacco or ETOH use. FAMILY HISTORY: Significant for coronary artery disease. The patient states that his father was hugo gnosed with coronary artery disease. PHYSICAL EXAMINATION: VITAL SIGNS: Temperature 98.2, pulse 83, respirations 16, blood pressure 141/80. GENERAL: A 68-year-old gentleman sitting on chair in examination room in no acute distress. HEENT: Normocephalic, atraumatic. NECK: No nuchal rigidity. CHEST: Clear to auscultation. A wound of the left upper anterior chest is present which measures ap proximately 0.5 x 0.4 cm. Granulation tissue is present within the wound margins. No purulent drain age is associated with the wound. No erythema of the skin surrounding the wound is appreciated. No maceration of the skin of the periwound is noted. CARDIAC: Regular rate and rhythm. ABDOMEN: Soft. EXTREMITIES: No clubbing or cyanosis. NEUROLOGIC: Grossly nonfocal. ASSESSMENT AND PLAN: 1. Wound of left upper anterior chest subsequent to ICD upgrade in 12/2017. Dressing changes of Jenna vercel and Mepilex border will be initiated today. These dressing changes are to be performed on a d aily basis after cleansing and irrigation. The patient is to continue clindamycin as previously pres cribed. The patient states he has a followup appointment with Dr. Medina in the near future. I will s ee Mr. Mullins as needed after his evaluation by Dr. Medina. 2. Coronary artery disease. 3. Gastroesophageal reflux disease. 4. Hypertension. 5. Chronic back pain status post laminectomy. 6. History of paroxysmal atrial fibrillation. 7. Chronic obstructive pulmonary disease. 8. Nonalcoholic fatty liver disease. 9. History of congestive heart failure.
== END 2018-01-26 14:50 | disposition home or self-care (01) ==
LOC: WCC 14:49
PROVIDERS: ATTEND Family Medicine
DX: S21.102D Unspecified open wound of left front wall of thorax without penetration into thoracic cavity, subsequent encounter (principal); I25.10 Atherosclerotic heart disease of native coronary artery without angina pectoris; K21.9 Gastro-esophageal reflux disease without esophagitis; I10 Essential (primary) hypertension; M54.9 Dorsalgia, unspecified; J44.9 Chronic obstructive pulmonary disease, unspecified; K76.0 Fatty (change of) liver, not elsewhere classified; Z86.79 Personal history of other diseases of the circulatory system; Z98.890 Other specified postprocedural states
CPT/HCPCS: 97602; 99202; A4218; G0463

== ENCOUNTER 2019-02-06 20:56 | Inpatient (IN) | payer OTHER ==
[~2019-02-06 20:56] MED LIST: Amiodarone 150 MG/3 ML VIAL ONE; DOPamine/D5W 400 mg/250 ml PREMIX ONE; Lidocaine HCl/PF 100 MG/5 ML SYRINGE ONE
--- NOTE | 2019-02-06 21:35 | RAD ---
EXAM: Single view of the chest HISTORY: Pacemaker firing COMPARISON: 12/15/2017 FINDINGS: Single view of the chest shows an enlarged but stable cardiomediastinal silhouette. There is been interval exchange of the pacemaker. Currently, there is a triple lead pacemaker with its leads in the right atrium, right ventricle, and coronary sinus. The patient is status post CABG. Ther e is no evidence of consolidation, mass, or pleural effusion. The bones are unremarkable. IMPRESSION: Cardiomegaly without evidence of acute cardiopulmonary disease
[2019-02-06] MEDS ORDERED: Magnesium 2 GM/50 ML BAG (IN WATER) ONE (21:36)
[2019-02-06 21:37] LABS: Hemoglobin 15.7 g/dL (14.0-18.0); Mean Corpuscular HGB CONC 33.8 g/dL (32.0-36.0); Mean Corpuscular Hemoglobin 31.3 pg (27.0-31.0); Mean Corpuscular Volume 92.6 fL (78.0-98.0); Platelet Count 200 thou/uL (130-400); RBC Distribution Width 12.7 % (11.5-14.5); Red Blood Cell (RBC) Count 5.03 mill/uL (4.70-6.10); White Blood Cell (WBC) Count 8.6 thou/uL (4.8-10.8)
[2019-02-06 21:42] LABS: INR-International Normal Ratio 1.4; PTT 47.1 SEC (22.9-36.1); Prothrombin Time 16.8 SEC (12.0-14.7)
[2019-02-06 21:58] LABS: Band 3 % (5-11); Eosinophils 4 % (0-10); Lymphocytes 8 % (21-51); MDiff Complete? YES; Neutrophil 85 % (42-75); Platelet Morphology Comment Appears Adequate; RBC Morphology Normal
[2019-02-06] MEDS ORDERED: Midazolam HCl 5 mg/ml Vial ONE (21:58)
[2019-02-06 22:05] LABS: ALT (SGPT) 15 U/L (8-55); AST (SGOT) 21 U/L (5-34); Albumin 4.1 g/dL (3.4-4.8); Alkaline Phosphatase 105 U/L (40-110); Anion Gap 15 mmol/L (10-20); BUN (Urea Nitrogen) 12 mg/dL (8.4-25.7); Bilirubin, Total 0.5 mg/dL (0.2-1.2); CK (CPK) 120 U/L (30-200); Calc. Creatinine Clearance 0 mL/min (70-130); Calcium 9.3 mg/dL (7.8-10.44); Carbon Dioxide 22 mmol/L (23-31); Chloride 104 mmol/L (98-107); Estimated GFR-MDRD 88; Globulin 3.2 g/dL (2.4-3.5); Glucose 120 mg/dL (80-115); Potassium 3.7 mmol/L (3.5-5.1); Protein, Total 7.3 g/dL (5.8-8.1); Sodium 137 mmol/L (136-145)
[2019-02-06 22:23] LABS: CKMB 5.9 ng/mL (0-6.6)
[2019-02-07] MEDS ORDERED: Ondansetron PF 4 MG/2 ML Vial IVP PRN ×2 (00:43→01:10)
[2019-02-07] MEDS ORDERED: Ondansetron ODT 4 MG TAB SL PRN (00:43)
[2019-02-07] MEDS ORDERED: Amiodarone 450 MG, Admixture Fee 1 EACH in Dextrose 5% in Water 250 ML IVPB SCH (00:45)
[2019-02-07] MEDS ORDERED: DOBUTamine 500 mg/250 ml 250 ML IVPB SCH (01:10)
[2019-02-07] MEDS ORDERED: DOPamine 400 MG/D5W 250 ML 250 ML IVPB SCH (01:10)
[2019-02-07] MEDS ORDERED: Acetaminophen 500 MG TAB PO PRN (01:10)
[2019-02-07] MEDS ORDERED: Ondansetron ODT 4 MG TAB PO PRN (01:10)
[2019-02-07 01:12] VITALS: BMI 36.9
--- NOTE | 2019-02-07 01:59 | HP ---
PRIMARY CARE PROVIDER: [facility], [place], [place]. PRIMARY CRINKLING MACHINE OPERATOR: Gray Crain MD PRIMARY TRAFFIC SIGNAL MECHANIC: Kevin Medina MD CHIEF COMPLAINT: Automatic internal cardiac defibrillator firing. HISTORY OF PRESENT ILLNESS: This is a 69-year-old male, who presents to [facility] Emergency Department in transfer by EMS personnel after patient apparently received up to 8 discharges from his AICD device. The patient states he was seated in his recliner when he felt uneasy and felt like his device was going to shock him. The patient states this occurred approximately 8 times corroborated by his who was holding his hand. The patient states he underwent recent cardiac ablation at [facility] in [place], [place] and was following up with his primary photograph finisher, Dr. Medina within the last 7 days. The patient states he was supposed to follow up on a routine basis, 02/07/2019, for evaluation of his AICD device. The patient states he has had multiple firings over the last several weeks, undergoing the ablation. The patient states he has been compliant with his sotalol 160 mg twice daily in addition to Xarelto. The patient denied any fever, chills, cough, congestion, or exposure history. The patient denied any specific increased lower extremity swelling. The patient states he remains active at his home fishing and doing regular home chores including yard work on a regular basis. The patient denied any noncompliance with his chronic medication regimen and no exposure to new antiarrhythmics. The patient states his current AICD device was placed in 2018 with revision and 3rd lead placement. In the emergency room, the patient underwent general evaluation with telemetry and EKG monitoring showing refractory ventricular tachycardia with unstable vital signs and hypotension. The patient was noted with heart rates in the 140s to 150s. Due to the patient's unstable nature, the patient received synchronized cardioversion in the emergency room. The patient also received Versed, lidocaine, magnesium sulfate and initiated on amiodarone drip after a bolus of 300 mg. The patient was noted with hypotension and cardiogenic shock requiring the addition of dobutamine and dopamine infusion in the emergency room. The patient also received intravenous normal saline bolus with stabilization of the blood pressure in the 110 to 120 range systolic. PAST MEDICAL HISTORY: 1. Recurrent ventricular tachycardia, status post AICD placement and cardiac ablation, 01/2019. 2. Chronic anticoagulation with Xarelto. 3. Atrial fibrillation, chronic. 4. Hyperlipidemia. 5. Hypertension. 6. Chronic obstructive pulmonary disease. 7. Coronary artery disease. 8. Posttraumatic stress disorder. 9. Anxiety. 10. Nonalcoholic fatty liver disease. PAST SURGICAL HISTORY: 1. Status post appendectomy. 2. Status post CABG x2 vessels in the and revision in 2002. 3. Status post spinal surgery. 4. Status post tonsillectomy. 5. Status post multiple cardiac ablations. 6. Status post bilateral knee surgery. 7. Status post hand surgery. 8. Status post shoulder repair. CURRENT MEDICATIONS: 1. Xarelto 10 mg p.o. daily. 2. Sotalol 160 mg p.o. b.i.d. 3. Carvedilol 6.25 mg p.o. b.i.d. 4. Sertraline 100 mg p.o. daily. 5. Digoxin 125 mcg three times per week, Wednesday, Wednesday, and Wednesday. 6. Lasix 20 mg p.o. b.i.d. 7. Omeprazole 20 mg p.o. daily. List is not complete and will need to be updated with the family in the a.m. ALLERGIES: TO KEFLEX. FAMILY HISTORY: Positive for hypertension and coronary artery disease. SOCIAL HISTORY: The patient resides near [place], [place]. . Accompanied by multiple family members in the emergency room. Remote tobacco use quitting more than 10 years prior to this evaluation. Daily alcohol use. No illicit drug use. Functional of all activities of daily living. Retired plain clothes police officer. REVIEW OF SYSTEMS: CONSTITUTIONAL: Negative for weight loss or gain, ability to conduct usual activities. SKIN: Negative for rash, itching. EYES: Negative for double vision, pain. ENT/MOUTH: Negative for nose bleeding, neck stiffness, pain, tenderness. CARDIOVASCULAR: Negative for palpitations, dyspnea on exertion, orthopnea. RESPIRATORY: Negative for shortness of breath, wheezing, cough, hemoptysis, fever or night sweats. GASTROINTESTINAL: Negative for poor appetite, abdominal pain, heartburn, nausea, vomiting, constipation, or diarrhea. GENITOURINARY: Negative for urgency, frequency, dysuria, nocturia. MUSCULOSKELETAL: Negative for pain, swelling. NEUROLOGIC/PSYCHIATRIC: Negative for anxiety, depression. ALLERGY/IMMUNOLOGIC: Negative for skin rash, bleeding tendency. Otherwise negative except as stated per HPI. PHYSICAL EXAMINATION: VITAL SIGNS: On admission, blood pressure 103/66, pulse 145, respiratory rate 15, temperature 98.9 degrees Fahrenheit, O2 saturation 95% on 2 L/minute by nasal cannula. GENERAL APPEARANCE: This is a 69-year-old male, alert and oriented x3, pleasant, responsive, in no acute distress. HEENT: Pupils are equal, round, reactive to light and accommodation. Extraocular muscles are intact. No scleral icterus. No conjunctival injection. Nares are patent. OP is clear. Teeth in fair repair. NECK: Supple. No cervical adenopathy. No thyromegaly. No carotid bruits. No JVD appreciated. Cervical spine with full active and passive range of motion. No meningeal signs noted. CHEST: Lungs are clear to auscultation bilaterally. CARDIOVASCULAR: S1, S2 with a 2/6 systolic ejection murmur loudest in the left upper sternal border. Left upper chest wall with AICD in place. ABDOMEN: Obese, soft, nontender, and nondistended. Bowel sounds are positive in all 4 quadrants. There is no hepatosplenomegaly. No abdominal bruits. No rebound or guarding appreciated. EXTREMITIES: Warm and dry with fair turgor. Chronic stasis changes to bilateral lower extremities. Minimal edema at the ankles. Pulses diminished, but palpable at the dorsalis pedis, posterior tibial, and popliteal arteries bilaterally. Capillary refill less than 2 seconds. NEUROLOGIC: Cranial nerves 2 through 12 are grossly intact. No focal or lateralizing signs appreciated. PERTINENT LABORATORY DATA AND X-RAY FINDINGS: Sodium 137, potassium 3.7, chloride 104, CO2 of 22, BUN 12, creatinine 0.87, estimated GFR of 88, glucose 120, calcium 9.3. LFTs within normal limits. Troponin I 0.118. BNP 163. Albumin 4.1. CBC showed a white blood cell count of 8.6, hemoglobin 15.7, hematocrit 47, platelet count 200 with 85% neutrophils and 3% bands. PT 16.8, INR 1.4, PTT 47.1. Portable chest x-ray dated 02/06/2019, showed cardiomegaly without acute process. EKG dated 02/06/2019, by my interpretation shows ventricular tachycardia with heart rates in the 150s. ASSESSMENT AND PLAN: 1. Unstable ventricular tachycardia. The patient will be admitted to the Critical Care Unit. Status post synchronized cardioversion in the emergency room. We will continue amiodarone infusion. Resume sotalol 160 mg p.o. b.i.d. We will consult Cardiology and Electrophysiology Service in the a.m. 2. Automatic implantable cardioverter defibrillator discharges with ventricular tachycardia. See #1 above. Automatic implantable cardioverter defibrillator interrogation in the a.m. 3. Cardiogenic shock. Improved with aggressive IV fluid hydration in addition to stabilization and return to sinus mechanism with cardioversion. Continue IV fluids. Continue dobutamine and dopamine infusion and monitor in the Critical Care Unit. 4. Hypotension. Continue dobutamine and dopamine infusion and titrate to systolic greater than 100. Continue to follow in the critical care unit. Consult Cardiology Service in the a.m. 5. Chronic anticoagulation. Continue Xarelto 10 mg p.o. daily. 6. Prophylaxis. SCDs while in bed. Pepcid 20 mg p.o. b.i.d.. CODE STATUS: Full. Surrogate medical decision maker is the patient's spouse. Job ID: [id number]
[2019-02-07 02:09] LABS: Troponin I 3.728 ng/mL (< 0.028)
[2019-02-07] MEDS ORDERED: Lidocaine 2 gm/D5W 500 ml 500 ML IVPB SCH (02:15)
[2019-02-07] MEDS ORDERED: Sodium Chloride 0.9% 250 ML 250 ML IVPB SCH (02:30)
[2019-02-07] MEDS: Amiodarone 450 MG in Dextrose 5% in Water 250 ML IVPB SCH ×2 (02:32→10:48)
[2019-02-07] MEDS: Lorazepam 2 MG/ML VIAL SLOW IVP PRN ×2 (03:03→15:03)
[2019-02-07] MEDS ORDERED: Zolpidem Tartrate 5 MG TAB PO SCH ×2 (04:15→21:00)
[2019-02-07 04:51] LABS: Band 4 % (5-11); Hemoglobin 13.9 g/dL (14.0-18.0); Lymphocytes 6 % (21-51); MDiff Complete? YES; Mean Corpuscular HGB CONC 34.3 g/dL (32.0-36.0); Mean Corpuscular Volume 93.4 fL (78.0-98.0); Mean Platelet Volume 9.1 fL (7.4-10.4); Monocytes 6 % (0-10); Neutrophil 84 % (42-75); Platelet Count 167 thou/uL (130-400); Platelet Morphology Comment Appears Adequate; RBC Distribution Width 12.6 % (11.5-14.5); RBC Morphology Normal; Red Blood Cell (RBC) Count 4.32 mill/uL (4.70-6.10); White Blood Cell (WBC) Count 10.4 thou/uL (4.8-10.8)
[2019-02-07 05:08] LABS: Digoxin Less than 0.15 ng/mL (0.8-2.0)
[2019-02-07 05:09] LABS: ALT (SGPT) 15 U/L (8-55); AST (SGOT) 41 U/L (5-34); Albumin 3.5 g/dL (3.4-4.8); Alkaline Phosphatase 90 U/L (40-110); Anion Gap 10 mmol/L (10-20); BUN (Urea Nitrogen) 10 mg/dL (8.4-25.7); Bilirubin, Total 0.4 mg/dL (0.2-1.2); Calc. Creatinine Clearance 153 mL/min (70-130); Calcium 8.4 mg/dL (7.8-10.44); Carbon Dioxide 26 mmol/L (23-31); Chloride 107 mmol/L (98-107); Estimated GFR-MDRD Greater than 90; Globulin 2.6 g/dL (2.4-3.5); Glucose 115 mg/dL (80-115); Magnesium 2.2 mg/dL (1.6-2.6); Potassium 3.6 mmol/L (3.5-5.1); Protein, Total 6.1 g/dL (5.8-8.1); Sodium 139 mmol/L (136-145)
[2019-02-07 05:19] LABS: Troponin I 7.282 ng/mL (< 0.028)
--- NOTE | 2019-02-07 07:46 | CON ---
DATE OF CONSULTATION: TOTAL CRITICAL CARE TIME: 50 minutes total. REASON FOR CONSULTATION: VT. HISTORY OF PRESENT ILLNESS: Mr. Mullins is a 69-year-old gentleman with a history of CAD, status bypass surgery in addition to recurrent VT, who recently presented with palpitation and tachycardia. He was found to be in VT. He was seen by the emergency room. Multiple conversations were noted with the ER physician and staff. The patient was given IV amiodarone and continued to have a ventricular tachycardia. I then recommended he receive IV lidocaine with 100 mg IV bolus. He did not convert. He became hypotensive after the amiodarone. He underwent a synchronized cardioversion successfully. At that point, his blood pressure continued to slowly decline and was down in the 70s. He was started on dopamine and given IV fluids. His blood pressure improved. He never had chest discomfort or pressure. During my visit with Mr. Mullins, the patient denies chest pain, pressure, shortness of breath, or associated symptoms. He states he recently underwent VT ablation in [place] 2 weeks ago. He had recurrent ICD discharge on his way home one day after the procedure. He has a followup appoint with Dr. Garces tomorrow. PAST MEDICAL HISTORY: CAD status post bypass surgery (cath films were reviewed). He did have a graft to the right coronary artery that is occluded. His right coronary artery is also occluded. He has a ALLRED to the LAD with no graft to the circumflex artery. Atrial fibrillation, hyperlipidemia, hypertension, COPD, anxiety disorder, nonalcoholic fatty liver. PAST SURGICAL HISTORY: Spine surgery, tonsillectomy, recent VT ablation, knee surgery, hand surgery, shoulder repair, appendectomy. HOME MEDICATIONS: Include Xarelto, sotalol, carvedilol, sertraline, digoxin, Lasix. ALLERGIES: KEFLEX. REVIEW OF SYSTEMS: A 10-point review of systems is reviewed as above, otherwise negative. PHYSICAL EXAMINATION: GENERAL: Patient is a pleasant gentleman who is in no acute distress. The patient appears their stated age. VITAL SIGNS: Blood pressure 112/70, pulse 80, respirations 20. He is currently on 5 mcg of dobutamine in addition to IV lidocaine and amiodarone. NEUROLOGIC: The patient is alert and oriented x3 with no focal neurologic deficits. HEENT: Sclerae without icterus. Mouth has moist mucous membranes with normal pallor. NECK: No JVD. Carotid upstroke brisk. No bruits bilaterally. LUNGS: Clear to auscultation with unlabored respirations. BACK: No scoliosis or kyphosis. CARDIAC: Regular rate and rhythm with normal S1 and S2. No S3 or S4 noted. No significant rubs, murmurs, thrills, or gallops noted throughout the precordium. PMI is not displaced. There is no parasternal heave. ABDOMEN: Soft, nontender, nondistended. No peritoneal signs present. No hepatosplenomegaly. No abnormal striae. EXTREMITIES: 2+ femoral and 2+ dorsalis pedis pulses. No cyanosis, clubbing, or edema. SKIN: No gross abnormalities. PERTINENT LABORATORY DATA: Hemoglobin 13.9, hematocrit 40.4, platelet count of 167. Magnesium 2.2, potassium 3.6. Peak troponin 7.2. BNP 163. IMPRESSION: 1. Recurrent ventricular tachycardia. 2. Coronary artery disease. 3. Status post bypass surgery. 4. Occluded right coronary artery. RECOMMENDATIONS: 1. At this point, would recommend continuing IV amiodarone in addition to IV lidocaine. 2. Consult with EP; he likely will need transfer to [place] for VT ablation. 3. Increased troponin likely from demand ischemia. The patient did have a prolonged episode of hypotension, likely causing demand ischemia. 4. Continue Xarelto for underlying atrial fibrillation. 5. I have discussed case with Dr. Gray Crain. No further recommendations. Job ID: [id number]
--- NOTE | 2019-02-07 07:53 | RAD ---
EXAM: CHEST ONE VIEW HISTORY: Central line placement. COMPARISON: 02/06/2019 at 2108 hours FINDINGS: There has been interval placement of a right internal jugular vein central venous catheter with the t ip overlying the expected location of the proximal SVC. Postsurgical changes related to CABG are again noted. A multilead left subclavian AICD device is again noted in place. The heart is enlarged. There is mild prominence of interstitial markings predominantly on the left. Findings could be related to mild asymmetric pulmonary edema versus infectious process. A small left pleural effusion a nd associated atelectasis are noted. Degenerative changes are seen in the spine. No other interval change. IMPRESSION: 1. Interval placement of a right internal jugular vein central venous catheter without evidence of pn eumothorax. 2. Mild increase in interstitial densities greater on the left with could be related to an element of asymmetric pulmonary edema versus infectious process. 3. Small left pleural effusion and atelectasis. 4. Cardiomegaly.
[2019-02-07 08:11] VITALS: TEMP 97.9
[2019-02-07] MEDS ORDERED: Potassium Chloride 40 MEQ in Premix Bag 1 BAG IVPB SCH (08:45)
[2019-02-07] MEDS ORDERED: Famotidine 20 MG TAB PO SCH (09:00)
[2019-02-07] MEDS ORDERED: FLU VACC TS2019-20(65YR UP)/PF 180 MCG/0.5 ML SYRINGE IM ONE (09:00)
[2019-02-07] MEDS ORDERED: Sotalol HCl 80 MG TAB PO SCH (09:00)
[2019-02-07] MEDS ORDERED: Aspirin 325 MG TAB PO SCH (09:00)
[2019-02-07] MEDS ORDERED: Prevnar 13-Val Conj/PF 0.5 ML SYRINGE IM ONE (09:00)
--- NOTE | 2019-02-07 10:18 | PRG ---
DATE OF SERVICE: 02/07/2019 ADDENDUM: Mr. Mullins had multiple episodes of ventricular tachycardia as mentioned in the chart. He said he got shocked 8 times at home. He had to be externally cardioverted here. He had a recent VT ablation. The plan now is to load him with intravenous amiodarone. We will replete potassium. He is also on lidocaine for now. The patient has undergone bypass on two different occasions. He is not a candidate for any further revascularization. Prognosis guarded long-term. Job ID: [id number]
--- NOTE | 2019-02-07 11:01 | CON ---
DATE OF CONSULTATION: 02/07/2019 HISTORY OF PRESENT ILLNESS: Tony Mullins is a 69-year-old gentleman, admitted to the hospital after his ICD went off 8 or 9 times. He had been seen by the local [facility] and has seen by physicians here. He is on amiodarone drip and lidocaine drip. He now is scheduled to apparently go to [facility] in [place] for ongoing evaluation of his cardiac arrhythmias. He is a former smoker, quit smoking in 1990. Sees local [place] doctors. PAST MEDICAL HISTORY: 1. Coronary artery disease. 2. CHF. 3. Atrial fibrillation. 4. Ventricular tachycardia. 5. COPD. 6. Hypertension. PREVIOUS SURGERIES: 1. Bypass surgery x2. 2. Knee surgery. 3. Shoulder surgery. 4. Spinal surgery. 5. Tonsillectomy. 6. Appendix. TOBACCO: Quit in 1990. ALCOHOL: None. HOME MEDICATIONS: Include; 1. Tramadol 50. 2. Tizanidine 4. 3. Hydoxyzine 10. 4. Hydralazine 10. 5. Ambien 10. 6. Betapace 160. 7. Simvastatin __. 8. Zoloft 100. 9. Xarelto 20. 10. Lisinopril 5. 11. Nose spray. 12. Lasix 40. 13. Digoxin 0.125. 14. Symbicort. 15. ProAir. ALLERGIES: CEPHALOSPORIN. REVIEW OF SYSTEMS: Otherwise, 10-point negative. PHYSICAL EXAMINATION: GENERAL: Awake, alert, responsive, sitting on the side of the bed. VITAL SIGNS: His pulse is 80, respiratory rate is 18, sats 95%, blood pressure . CHEST: No wheezing, crackles. CARDIAC: Normal S1, S2. No gallops. ABDOMEN: No masses. LABORATORY DATA: White count 10,000, H and H are 13 and 40, platelet count normal. Lytes are normal. BNP is 163. X-ray shows no acute infiltrates. ASSESSMENT AND PLAN: 1. Cardiomyopathy, status post recurrent ICD shock. 2. Tobacco abuse. 3. Chronic obstructive pulmonary disease. He has elected to go to [place] for ablation of his ventricular tachycardia. Otherwise, continue supportive care. We will follow while in the ICU. Consultation note, 70 minutes, 50% of direct patient care. Job ID: [id number]
--- NOTE | 2019-02-07 12:05 | CON ---
DATE OF CONSULTATION: 02/07/2019 I am seeing Mr. Mullins at our [facility] ICU as an electrophysiology staff consultant. His problems are; 1. Recurrent ventricular arrhythmias. a. Current presentation with VT storm with repeated ICD shocks with a right bundle inferior axis VT at 153 beats per minute, requiring IV amiodarone and lidocaine for suppression. b. Prior VT episodes with motor suppression with sotalol, status post VT ablation on 01/23/2019, then noninducible inferolateral scar area ablated. 2. Paroxysmal atrial fibrillation. a. Status post pulmonary venous isolation procedure on 01/31/2019, along with VT ablation. b. Status post dual-chamber ICD implantation on 08/02/2017, with high-grade ventricular pacing prompting BiV ICD upgrade at that time. 3. Chronic systolic congestive heart failure with ischemic cardiomyopathy for a prior coronary artery bypass grafting surgery x2 with patent ALLRED to LAD only. a. Reduced LVEF of 30% to 35% on echo on 05/17/2017. 4. History of COPD. 5. Anticoagulation, Xarelto. ALLERGIES: KEFLEX. MEDICATIONS: At home included; 1. Albuterol. 2. Omeprazole. 3. Ipratropium. 4. Hydroxyzine. 5. Tizanidine. 6. Hydrocodone. 7. Potassium chloride. 8. Tylenol with Codeine. 9. Carvedilol 12.5 mg twice a day. 10. Furosemide 40 mg daily. 11. Tramadol. 12. Hydralazine. 13. Lisinopril 5 mg daily. 14. Ondansetron. 15. Amiodarone on transfer. Medication at last visit included; 1. Xarelto. 2. Omeprazole. 3. Aspirin. 4. Digoxin. 5. Coreg. 6. Lasix. 7. Tizanidine. 8. Sertraline. 9. Hydralazine. 10. Klor-Con. 11. Ambien. 12. Lipitor. 13. Tramadol. 14. Symbicort. 15. Sotalol 160 mg twice a day. 16. Entresto daily. 17. Hydrocodone. SUBJECTIVE: Mr. Mullins has done with his usual activities when developed recurrences of ICD shocks overnight. He did notice prior runs of nonsustained ventricular arrhythmia, but no therapies were noted. He did have recent VT ablation as detailed above. In the ER, it was noted to be mild complex tachycardia. IV amiodarone was given, but had dropped his blood pressure when he was cardioverted with heart rate beating to 70s. IV dopamine was transiently given. Recurrent nonsustained VT episodes prompting the lidocaine administration this morning. His lab work included elevated troponin up to 7.2. EKG does not reveal ST elevations. Some ST depression is noted post cardioversion. Currently, he is feeling better. He now is stable. No dizziness, loss of consciousness. Currently, no stroke-like symptoms. No neurological deficits. Rest of 12-point review of system otherwise unremarkable. PAST MEDICAL HISTORY: As above. He has history of chronic anticoagulation, on Xarelto. AFib and atrial flutter ablation in January 23. Hyperlipidemia, hypertension, post-traumatic stress disorder, anxiety, alcoholic fatty liver disease, COPD, and coronary artery disease with prior bypass surgeries. PAST SURGICAL HISTORY: Significant for appendectomy, bypass grafting surgery x2 vessels in and revision in 2002, spinal surgery, tonsillectomy, multiple cardiac ablations, bilateral knee surgery, hand surgery, and shoulder repair in the past. SOCIAL HISTORY: Denies smoking, EtOH, or drug abuse. Works as a security personal. He is . FAMILY HISTORY: Not contributory. OBJECTIVE DATA: VITAL SIGNS: Blood pressure 112/73, heart rate 60, respirations 12, and the patient is afebrile. GENERAL: Alert and oriented man, in no apparent distress. NECK: Supple. Jugular vein is not distended. CHEST: Coarse without crackles. CARDIAC: Heart sounds are regular to rate and rhythm. No murmur or gallop. ABDOMEN: Benign. Bowel sounds are positive. EXTREMITIES: Lower extremity without edema, clubbing, or cyanosis. Pulses are adequate. NEUROLOGIC: The patient is nonfocal. MUSCULOSKELETAL: No joint swelling or deformity. SKIN: Without rash. Left precordial ICD insertion site is healed well. DATABASE: The EKG is reviewed. Initial EKG reveals wide-complex rhythm, right bundle inferior axis morphology, rate of 153 beats per minute. Subsequent EKG post conversion reveals sinus rhythm, ventricular pacing and other EKG is revealing sinus rhythm with right bundle left axis morphology. EKG, QTc on this is 490 milliseconds. ICD interrogation reveals an adequately functioning Medtronic BiV ICD. Frequent VT episodes with rates in 200 BPM range are noted. ICD shocks terminate the VT, but the VT reinitiated requiring further therapy. There is a slower VT in he range of 150-160s also seen not receiving therapy hence in the monitor only zone. LABORATORY DATA: White count is 10.4, hemoglobin is 13.9, and platelet count is 157. Sodium 139, potassium 3.6, BUN is 10, and creatinine 0.75. Troponin I 0.118, 3.728 and 7.282 consecutively. TSH is 0.86. The chest x-ray shows cardiomegaly without acute cardiopulmonary disease. ASSESSMENT AND PLAN: Mr. Mullins is a pleasant 69-year-old man with history of coronary artery disease with bypass grafting surgery, ischemic cardiomyopathy, moderate reduced left ventricular ejection fraction in the 30% to 35% range, who has recurrent ventricular and atrial arrhythmias. He underwent a combined ventricular tachycardia and atrial arrhythmia ablation, pulmonary venous isolation and CTI ablation performed on January 23. At that time, VT was noninducible but not clearly he has recurrent episodes. This is despite of elevated dose of sotalol at 160 mg twice a day. He has responded to amiodarone, but concern is just about long-term administration of this drug and potential recurrences. Hence, I would advocate a temporary re-ablation, now that the VT is more manifested. In the meantime, though we will continue suppressive therapy, we will arrange transfer to [facility] to the higher level of [facility]. ICD interrogation is obtained. We will continue to monitor with you. Thank you for allowing me to participate in care of this patient. Job ID: [id number] [id number]
[2019-02-07] MEDS ORDERED: Rivaroxaban 10 MG TAB PO SCH (17:00)
[2019-02-07] MEDS ORDERED: Aspirin 81 mg Enteric Coated Tablet PO SCH (21:00)
[2019-02-07] MEDS ORDERED: Atorvastatin Calcium 20 MG TAB PO SCH (21:00)
[2019-02-08] MEDS ORDERED: Digoxin 0.125 MG TAB PO SCH (09:00)
[2019-02-08] MEDS ORDERED: FLU VACC TS2019-20(65YR UP)/PF 180 MCG/0.5 ML SYRINGE IM ONE (09:30)
== END 2019-02-07 15:37 | disposition short-term general hospital (02) | DRG 308 ==
LOC: ERS 20:56 → CCU 02-07 00:13
PROVIDERS: ADMIT Family Medicine; ATTEND Family Medicine
PROC: 3E033XZ Introduction of Vasopressor into Peripheral Vein, Percutaneous Approach (ICD-10-PCS; principal; 2019-02-07)
PROC: 5A2204Z Restoration of Cardiac Rhythm, Single (ICD-10-PCS; 2019-02-07)
DX: I47.2 Ventricular tachycardia (principal); R57.0 Cardiogenic shock; I50.22 Chronic systolic (congestive) heart failure; E78.5 Hyperlipidemia, unspecified; J44.9 Chronic obstructive pulmonary disease, unspecified; F43.10 Post-traumatic stress disorder, unspecified; F41.9 Anxiety disorder, unspecified; I48.0 Paroxysmal atrial fibrillation; I11.0 Hypertensive heart disease with heart failure; I25.5 Ischemic cardiomyopathy; K76.0 Fatty (change of) liver, not elsewhere classified; Z90.49 Acquired absence of other specified parts of digestive tract; Z95.810 Presence of automatic (implantable) cardiac defibrillator; Z79.01 Long term (current) use of anticoagulants; Z95.1 Presence of aortocoronary bypass graft; Z79.899 Other long term (current) drug therapy; Z88.1 Allergy status to other antibiotic agents; Z87.891 Personal history of nicotine dependence; I25.10 Atherosclerotic heart disease of native coronary artery without angina pectoris
CPT/HCPCS: 36415; 71045; 80053; 80162; 82550; 82553; 83735; 83880; 84443; 84484; 85007; 85025; 85027; 85610; 85730; 87040; 87149; 93005; 93306; 94760; J0282; J1265; J2001; J2060; J2250; J2405; J3475; J3480; J7050; J7070

== ENCOUNTER 2020-02-27 11:47 | Outpatient (CLI) | payer OTHER ==
--- NOTE | 2020-02-27 12:09 | RAD ---
EXAM: Chest 2 views: HISTORY: Pneumonia with shortness of breath COMPARISON: 02/06/2019 FINDINGS: There is an enlarged but stable cardiomediastinal silhouette. Patient is status post CABG. The pacem seth is unchanged in position. Diffuse multifocal infiltrates are seen in the lungs. These appear to have worsened compared to the prior examination. There may be a small left pleural effusion. Dege nerative changes are seen in the spine. IMPRESSION: Worsening multifocal infiltrates
== END 2020-02-27 11:48 | disposition home or self-care (01) ==
LOC: BICRAD 11:47
PROVIDERS: ATTEND Internal Medicine Cardiovascular Disease
DX: I50.22 Chronic systolic (congestive) heart failure (principal); R91.8 Other nonspecific abnormal finding of lung field
CPT/HCPCS: 71046